=== PATIENT | female | born 1945 | race Caucasian/White ===

== ENCOUNTER 2017-06-27 22:32 | Emergency (ER) | payer OTHER ==
[~2017-06-27] VITALS: Ht 160 cm; Wt 88.5 kg
[~2017-06-27 22:32] MED LIST: ACET1TAB12; IBUP-51 PO; RANI150C4 PO
[2017-06-27 22:35] VITALS: BP 171/88
[2017-06-28 01:09] LABS: BASOPHILS # (AUTO) 0.1 /CMM (0.0-0.2); BASOPHILS % (AUTO) 0.6 % (0.0-2.0); EOSINOPHILS # (AUTO) 0.3 /CMM (0.0-0.7); EOSINOPHILS % (AUTO) 2.7 % (0.0-6.0); HEMATOCRIT 37 % (33-45); HEMOGLOBIN 12.2 g/dL (11.5-14.8); LYMPHOCYTES # (AUTO) 2.6 /CMM (0.8-4.8); LYMPHOCYTES % (AUTO) 27.7 % (20.0-44.0); MEAN CORPUSCULAR HEMOGLOBIN 28 PG (26.0-33.0); MEAN CORPUSCULAR HGB CONC 33 g/dl (31.0-36.0); MEAN CORPUSCULAR VOLUME 84 fL (82-100); MONOCYTES # (AUTO) 0.7 /CMM (0.1-1.30); MONOCYTES % (AUTO) 7.9 % (2.0-12.0); NEUTROPHILS # (AUTO) 5.7 /CMM (1.8-8.9); NEUTROPHILS % (AUTO) 61.1 % (43.0-81.0); PLATELET COUNT (AUTO) 249 /CMM (150-450); RDW COEFFICIENT OF VARIATION 15.1 (11.5-15.0); RED BLOOD CELL COUNT(AUTO) 4.37 MIL/uL (4.0-5.2); WHITE BLOOD COUNT (AUTO) 9.4 K/uL (4.3-11.0)
[2017-06-28 01:10] LABS: CALCIUM, SERUM 9.2 mg/dL (8.5-10.1)
== END 2017-06-28 02:03 | disposition home or self-care (01) ==
LOC: ER 22:35
DX: M25.562 Pain in left knee (principal); G89.29 Other chronic pain; J44.9 Chronic obstructive pulmonary disease, unspecified; K21.9 Gastro-esophageal reflux disease without esophagitis; M19.90 Unspecified osteoarthritis, unspecified site; M81.0 Age-related osteoporosis without current pathological fracture; F10.10 Alcohol abuse, uncomplicated; F17.200 Nicotine dependence, unspecified, uncomplicated; Z96.652 Presence of left artificial knee joint; Z88.8 Allergy status to other drugs, medicaments and biological substances
CPT/HCPCS: 36415; 73564-TC; 73700-TC; 80048-TC; 85025-TC; A4606; Z7610

== ENCOUNTER 2018-03-22 23:20 | Emergency (ER) | payer OTHER ==
[~2018-03-22] VITALS: Ht 160 cm; Wt 89.8 kg
[2018-03-23 00:33] VITALS: BP 134/76
[2018-03-23] MEDS ORDERED: HYDROMORPHONE HCL 2 MG TABLET PO STA (00:35)
[2018-03-23] MEDS ORDERED: HYDROMORPHONE HCL 2 MG TABLET ONE (00:40)
[2018-03-23] MEDS ORDERED: ONDANSETRON 4 MG TAB.RAPDIS ONE ×2 (00:41→00:44)
--- NOTE | 2018-03-23 00:46 | NUR ---
ADDITIONAL ZOFRAN REMOVED FROM OMNICELL. INITIAL ZOFRAN TAB FELL ON FLOOR WHILE PATIENT ATTEMPTED TO SELF ADMINISTER.
[2018-03-23] MEDS ORDERED: ONDANSETRON 4 MG TAB.RAPDIS SL ONE (01:00)
--- NOTE | 2018-03-23 02:01 | NUR ---
CALLED [facility], SPOKE TO JULIO FOR PENDING LEFT KNEE XR, PER JULIO XR RESULTS, WILL FAX RESULTS.
== END 2018-03-23 02:43 | disposition home or self-care (01) ==
LOC: ER 23:23
DX: M25.462 Effusion, left knee (principal); J45.909 Unspecified asthma, uncomplicated; J44.9 Chronic obstructive pulmonary disease, unspecified; K21.9 Gastro-esophageal reflux disease without esophagitis; G89.29 Other chronic pain; M54.5 Low back pain; F17.200 Nicotine dependence, unspecified, uncomplicated; Z96.653 Presence of artificial knee joint, bilateral; Z88.5 Allergy status to narcotic agent; Z88.6 Allergy status to analgesic agent
CPT/HCPCS: 73564; 99284; A4606; Q0162; Z7610

== ENCOUNTER 2019-01-25 13:35 | Emergency (ER) | payer OTHER ==
[~2019-01-25] VITALS: Ht 162.6 cm; Wt 89.8 kg
--- NOTE | 2019-01-25 13:44 | NUR ---
CAME IN FOR DARK COLORED URINE X 1 WEEK, DENIES DYSURIA. L FLANK PAIN SINCE YESTERDAY. TO ER BED 9, HOOKED TO MONITOR, CHANGED TO GOWN, PROVIDED W WARM BLANKET, AWAITING MD JASSO.
[2019-01-25 14:03] LABS: BASOPHILS # (AUTO) 0.2 /CMM (0.0-0.2); BASOPHILS % (AUTO) 1.6 % (0.0-2.0); EOSINOPHILS % (AUTO) 3.5 % (0.0-6.0); HEMATOCRIT 40 % (33-45); HEMOGLOBIN 13.3 g/dL (11.5-14.8); LYMPHOCYTES # (AUTO) 5.5 /CMM (0.8-4.8); LYMPHOCYTES % (AUTO) 49.7 % (20.0-44.0); MEAN CORPUSCULAR HGB CONC 34 g/dl (31.0-36.0); MEAN CORPUSCULAR VOLUME 92 fL (82-100); MONOCYTES # (AUTO) 0.7 /CMM (0.1-1.30); MONOCYTES % (AUTO) 6.3 % (2.0-12.0); NEUTROPHILS # (AUTO) 4.3 /CMM (1.8-8.9); NEUTROPHILS % (AUTO) 38.9 % (43.0-81.0); PLATELET COUNT (AUTO) 264 /CMM (150-450); RED BLOOD CELL COUNT(AUTO) 4.28 MIL/uL (4.0-5.2); WHITE BLOOD COUNT (AUTO) 11.1 K/uL (4.3-11.0)
--- NOTE | 2019-01-25 14:12 | NUR ---
DR WILLS AT BEDSIDE
[2019-01-25 14:15] LABS: ALANINE AMINOTRANSFERASE 120 U/L (12-78); ALBUMIN 2.9 g/dL (3.4-5.0); ALKALINE PHOSPHATASE 769 U/L (46-116); ASPARTATE AMINOTRANSFERASE 106 U/L (15-37); BILIRUBIN,TOTAL 14.5 mg/dL (0.2-1.0); CARBON DIOXIDE 22 mmol/L (21-32); CHLORIDE 100 mmol/L (98-107); GLUCOSE 122 mg/dL (74-106); SODIUM SERUM 134 mmol/L (136-145); TOTAL PROTEIN, SERUM 7.6 g/dL (6.4-8.2); UREA NITROGEN, BLOOD 13 mg/dL (7-18)
[2019-01-25] MEDS ORDERED: MORPHINE SULFATE INJ 2 MG/ML DISP.SYRIN IV ONE (14:30)
[2019-01-25] MEDS ORDERED: ONDANSETRON HCL/PF 4 MG/2 ML VIAL IV ONE (14:30)
[2019-01-25] MEDS ORDERED: IV NS 0.9% 1,000 ML BAG IV ONE (14:30)
[2019-01-25] MEDS ORDERED: diphenhydrAMINE HCL 50 MG/ML VIAL IV ONE ×2 (14:30→17:00)
[2019-01-25 14:41] LABS: APPEARANCE,URINE Clear (CLEAR); BILIRUBIN,URINE LARGE (NEGATIVE); BLOOD, URINE Negative Ery/uL (NEGATIVE); COLOR,URINE Dark (YELLOW); KETONES,URINE Trace (NEGATIVE); LEUKOCYTE ESTERASE ,URINE Negative (NEGATIVE); NITRITE, URINE Negative (NEGATIVE); PROTEIN,URINE 30 mg/dl (NEGATIVE); UGLUCOSE 100 MG/DL mg/dL (NEGATIVE)
[2019-01-25] MEDS ORDERED: diphenhydrAMINE HCL 50 MG/ML VIAL ONE ×2 (14:42→16:50)
[2019-01-25] MEDS ORDERED: ONDANSETRON HCL/PF 4 MG/2 ML VIAL ONE (14:42)
[2019-01-25] MEDS ORDERED: MORPHINE SULFATE INJ 2 MG/ML DISP.SYRIN ONE (14:43)
[2019-01-25] MEDS ORDERED: MORPHINE SULFATE INJ 4 MG/ML DISP.SYRIN ONE (14:43)
[2019-01-25] MEDS ORDERED: TRIA1TAB3 PO (14:45)
[2019-01-25] MEDS ORDERED: OXYC-454 PO (14:45)
[2019-01-25 14:49] LABS: BACTERIA,URINE Few /HPF (None Seen); RBC,URINE 0-2 /HPF (0-2); SQUAMOUS EPITHELIAL CELL,UR Few /HPF (None Seen); WBC,URINE 0-2 /HPF (0-3)
--- NOTE | 2019-01-25 14:49 | NUR ---
WHEELED OUT VIA RNEY FOR CT SCAN
[2019-01-25] MEDS ORDERED: IV NS 0.9% 250 ML IV ONE (14:50)
[2019-01-25] MEDS ORDERED: CT SWABBABLE VALVE TRANS SET 1 EA INFUS.SET MC ONE (14:50)
[2019-01-25] MEDS ORDERED: IOHEXOL-300 100 ML VIAL IV ONE (14:50)
--- NOTE | 2019-01-25 16:23 | NUR ---
CALLED [facility] FOR MS BED
--- NOTE | 2019-01-25 16:30 | NUR ---
CALLED [facility]. ENVIRONMENTAL ENGINEERING INTERN WAS PAGED
--- NOTE | 2019-01-25 16:54 | NUR ---
CALLED [facility] AND THEY ARE UNABLE TO TAKE THIS PT
--- NOTE | 2019-01-25 17:00 | NUR ---
[facility] [phone], SPOKE WITH MICHAEL RELAYED THE NEEDS FOR HIGHER LEVEL OF CARE (DX. LIVER FAILURE AND NEED ERCP). CLINICALS FAXED TO [phone] REQUESTED.
--- NOTE | 2019-01-25 17:07 | NUR ---
CALLED [facility] SPOKE WITH PAULINA ([phone]), TRANSFERRED TO CASE MANAGEMENT AND LEFT A GENERIC MESSAGE TO CALL US BACK.
--- NOTE | 2019-01-25 17:10 | NUR ---
GRACIELA PHAN CM, CALLED ASKING US TO CALL [facility] FOR AUTH.
--- NOTE | 2019-01-25 17:19 | NUR ---
CALLED [facility] ([facility]) [phone]. SPOKE WITH CARYL WHO WILL HAVE THE ON-CALL STRATIGRAPHER CALL US BACK (REFERENCE# [id number]) WITHIN 30 MIN.
[2019-01-25] MEDS ORDERED: LORAZEPAM INJ 2 MG/ML VIAL IV ONE (17:30)
[2019-01-25] MEDS ORDERED: NICOTINE PATCH (14MG) 14 MG PATCH.TD24 TD SCH (17:30)
[2019-01-25] MEDS ORDERED: LORAZEPAM INJ 2 MG/ML VIAL ONE (17:33)
--- NOTE | 2019-01-25 17:34 | NUR ---
US TECH AT BEDSIDE
--- NOTE | 2019-01-25 17:43 | NUR ---
CALLED [facility] [employer]. THE OFFICE IS CLOSED. WAITING FOR [employer] TO CALL BACK
--- NOTE | 2019-01-25 17:47 | NUR ---
JOVON FROM [employer] CALLED AND REQUESTED FACESHEET AND CLINICALS
--- NOTE | 2019-01-25 17:55 | NUR ---
CALLED [facility] TO REACH OUT TO JOVON DIRECTLY. NEW REFERENCE NUMBER [phone]
--- NOTE | 2019-01-25 18:07 | NUR ---
SPOKE TO JOVON AND INFORMED HER THAT PT NEEDS ERCP
--- NOTE | 2019-01-25 19:25 | NUR ---
CALLED [facility] TO ASK IF THERE WAS A CHANGE IN CAPACITY. [facility] IS UNABLE TO TAKE PT
--- NOTE | 2019-01-25 19:32 | NUR ---
REPORT GIVEN TO SHRUTHI LEMUS FOR JASMYNE
--- NOTE | 2019-01-25 20:26 | NUR ---
AT THE BED SIDE DISCUSSING THE PATIENT'S CONDISION AND OPTIONS W/ THE PT'S SON.
--- NOTE | 2019-01-25 20:52 | NUR ---
Patient/ son does not wish to proceed with medical care recommended by Dr. WILLS. Patient/ son verbalizes understanding of risks involved due to leaving against medical advice. Son has signed AMA form.
--- NOTE | 2019-01-25 20:53 | NUR ---
IV removed. Catheter intact and site benign. Pressure and 4x4 applied to site. No bleeding noted.
--- NOTE | 2019-01-25 20:59 | NUR ---
Patient discharged to home in stable condition. Written and verbal after care instructions given. Patient and son verbalized understanding of instruction.
[2019-01-25 21:07] VITALS: BP 153/96
== END 2019-01-25 21:09 | disposition left against medical advice (07) ==
LOC: ER 13:39
DX: K76.89 Other specified diseases of liver (principal); R10.30 Lower abdominal pain, unspecified; J44.9 Chronic obstructive pulmonary disease, unspecified; G89.29 Other chronic pain; M54.9 Dorsalgia, unspecified; R11.10 Vomiting, unspecified; K21.9 Gastro-esophageal reflux disease without esophagitis; F17.200 Nicotine dependence, unspecified, uncomplicated; Z96.653 Presence of artificial knee joint, bilateral; Z98.890 Other specified postprocedural states; Z60.2 Problems related to living alone; Z88.6 Allergy status to analgesic agent; Z88.5 Allergy status to narcotic agent
CPT/HCPCS: 36415; 74177; 76700; 80048; 80074; 80076; 81001; 85025; 85610; 87081; 96361; 96374; 96375; 96376; 99291; G0480; J1200 ×2; J2060; J2270 ×2; J2405; J7030; J7050; Q9967; 81000-TC

== ENCOUNTER 2019-04-03 11:22 | Emergency (ER) | payer OTHER ==
[~2019-04-03] VITALS: Ht 160 cm; Wt 69.9 kg
[~2019-04-03 11:22] MED LIST changes: -ACET1TAB12; -IBUP-51 PO; +OXYC-454 PO; +TRIA1TAB3 PO
--- NOTE | 2019-04-03 12:00 | NUR ---
RLQ PAIN SINCE 02/18/19 SINCE SURGERY FOR PANCREATIC CA WORST TODAY. DENIES N/V/D. PATIENT A/OX4, BREATHING EVEN AND UNLABORED, NO SOB NOTED, ATTACHED TO THE MONITOR, CHANGED INTO GOWN. NEEDS ATTENDED.
[2019-04-03] MEDS ORDERED: ONDANSETRON HCL/PF 4 MG/2 ML VIAL ONE (12:27)
[2019-04-03] MEDS: IV NS 0.9% 1,000 ML BAG IV ONE (12:27)
[2019-04-03] MEDS ORDERED: HYDROMORPHONE 1 MG/1 ML DISP.SYRIN ONE (12:28)
[2019-04-03 12:29] LABS: BASOPHILS # (AUTO) 0.1 /CMM (0.0-0.2); BASOPHILS % (AUTO) 0.9 % (0.0-2.0); EOSINOPHILS % (AUTO) 2.6 % (0.0-6.0); HEMATOCRIT 38 % (33-45); HEMOGLOBIN 12.4 g/dL (11.5-14.8); LYMPHOCYTES # (AUTO) 2.3 /CMM (0.8-4.8); MEAN CORPUSCULAR HGB CONC 33 g/dl (31.0-36.0); MEAN CORPUSCULAR VOLUME 93 fL (82-100); MONOCYTES # (AUTO) 0.7 /CMM (0.1-1.30); MONOCYTES % (AUTO) 6.6 % (2.0-12.0); NEUTROPHILS # (AUTO) 6.7 /CMM (1.8-8.9); NEUTROPHILS % (AUTO) 66.9 % (43.0-81.0); PLATELET COUNT (AUTO) 214 /CMM (150-450)
[2019-04-03] MEDS: ONDANSETRON HCL/PF 4 MG/2 ML VIAL IVP ONE (12:30)
[2019-04-03] MEDS: HYDROMORPHONE INJ 2 MG/ML DISP.SYRIN IV ONE (12:30)
[2019-04-03 13:14] LABS: CALCIUM, SERUM 8.3 mg/dL (8.5-10.1); CREATININE 0.9 mg/dL (0.6-1.3); POTASSIUM 3.6 mmol/L (3.5-5.1)
[2019-04-03 13:20] LABS: ALBUMIN 2.3 g/dL (3.4-5.0); BILIRUBIN,DIRECT 0.3 mg/dL (0.0-0.2); BILIRUBIN,TOTAL 0.4 mg/dL (0.2-1.0); TOTAL PROTEIN, SERUM 6.7 g/dL (6.4-8.2)
[2019-04-03 13:28] LABS: APPEARANCE,URINE Slightly Cloudy (CLEAR); BILIRUBIN,URINE Negative (NEGATIVE); BLOOD, URINE Negative Ery/uL (NEGATIVE); COLOR,URINE Yellow (YELLOW); KETONES,URINE Negative (NEGATIVE); LEUKOCYTE ESTERASE ,URINE Negative (NEGATIVE); NITRITE, URINE Negative (NEGATIVE); PROTEIN,URINE Negative (NEGATIVE); UGLUCOSE Negative (NEGATIVE); UROBILINOGEN,URINE 0.2 EU/dL (0.2)
--- NOTE | 2019-04-03 13:32 | NUR ---
URINE SENT TO LAB.
--- NOTE | 2019-04-03 13:51 | NUR ---
Ambulatory with a steady gait. IV removed. Catheter intact and site benign. Pressure and 4x4 applied to site. No bleeding noted.Patient discharged to home in stable condition. Written and verbal after care instructions given. Patient verbalizes understanding of instruction.
[2019-04-03 13:54] VITALS: BP 138/80
== END 2019-04-03 13:55 | disposition home or self-care (01) ==
LOC: ER 11:22
DX: C25.9 Malignant neoplasm of pancreas, unspecified (principal); J44.9 Chronic obstructive pulmonary disease, unspecified; K21.9 Gastro-esophageal reflux disease without esophagitis; M19.90 Unspecified osteoarthritis, unspecified site; M81.0 Age-related osteoporosis without current pathological fracture; G89.29 Other chronic pain; F17.200 Nicotine dependence, unspecified, uncomplicated; Z96.653 Presence of artificial knee joint, bilateral; Z98.890 Other specified postprocedural states; Z88.8 Allergy status to other drugs, medicaments and biological substances; Z60.2 Problems related to living alone; Z79.899 Other long term (current) drug therapy
CPT/HCPCS: 36415; 71250; 74176; 80048; 80076; 81001; 83690; 85025; 96374; 96375; 99284; J1170; J2405; J7030; 81000-TC

== ENCOUNTER 2019-05-15 01:47 | Emergency (ER) | payer OTHER ==
[~2019-05-15] VITALS: Ht 162.6 cm; Wt 81.6 kg
[2019-05-15] MEDS ORDERED: MORPHINE SULFATE INJ 2 MG/ML DISP.SYRIN IV ONE (02:00)
[2019-05-15] MEDS ORDERED: IV NS 0.9% 500 ML BAG IV ONE (02:00)
[2019-05-15] MEDS ORDERED: ONDANSETRON HCL/PF 4 MG/2 ML VIAL IVP ONE (02:00)
[2019-05-15] MEDS ORDERED: ONDANSETRON HCL/PF 4 MG/2 ML VIAL ONE (02:03)
[2019-05-15] MEDS ORDERED: MORPHINE SULFATE INJ 2 MG/ML DISP.SYRIN ONE (02:04)
--- NOTE | 2019-05-15 02:05 | NUR ---
PT BIBFAMILY. AAOX4. AMBULATORY. PT C/O HAD FEVER, CHILLS, DIZZYNESS EARLIER TODAY. THE PT TOOK 1G TYLENOL"-SOB, - FEVER (98.3). RR EVEN AND UNLABORED. PLACED ON MONITOR AND PULSE OX. MD AT BEDSIDE. NO ACUTE DISTRESS NOTED.
--- NOTE | 2019-05-15 02:20 | NUR ---
PARTICLE BOARD SUPERVISOR AT BEDSIDE FOR LAB COLLECTION
--- NOTE | 2019-05-15 02:33 | NUR ---
PT BROUGHT TO CT
[2019-05-15 02:36] LABS: BASOPHILS % (AUTO) 0.2 % (0.0-2.0); EOSINOPHILS % (AUTO) 1.5 % (0.0-6.0); HEMATOCRIT 32 % (33-45); HEMOGLOBIN 10.5 g/dL (11.5-14.8); LYMPHOCYTES # (AUTO) 0.3 /CMM (0.8-4.8); LYMPHOCYTES % (AUTO) 9.7 % (20.0-44.0); MEAN CORPUSCULAR HGB CONC 33 g/dl (31.0-36.0); MEAN CORPUSCULAR VOLUME 88 fL (82-100); MONOCYTES % (AUTO) 0.7 % (2.0-12.0); NEUTROPHILS % (AUTO) 87.9 % (43.0-81.0); PLATELET COUNT (AUTO) 85 /CMM (150-450); RED BLOOD CELL COUNT(AUTO) 3.66 MIL/uL (4.0-5.2); WHITE BLOOD COUNT (AUTO) 3.4 K/uL (4.3-11.0)
[2019-05-15 02:37] LABS: CALCIUM, SERUM 8.2 mg/dL (8.5-10.1); CARBON DIOXIDE 24 mmol/L (21-32); CHLORIDE 101 mmol/L (98-107); CREATININE 0.9 mg/dL (0.6-1.3); GLUCOSE 121 mg/dL (74-106); POTASSIUM 3.6 mmol/L (3.5-5.1); SODIUM SERUM 135 mmol/L (136-145); UREA NITROGEN, BLOOD 12 mg/dL (7-18)
[2019-05-15 02:43] LABS: ALANINE AMINOTRANSFERASE 25 U/L (12-78); ALBUMIN 2.3 g/dL (3.4-5.0); ALKALINE PHOSPHATASE 95 U/L (46-116); ASPARTATE AMINOTRANSFERASE 44 U/L (15-37); BILIRUBIN,DIRECT 0.3 mg/dL (0.0-0.2); BILIRUBIN,TOTAL 0.6 mg/dL (0.2-1.0); LIPASE 108 U/L (73-393); TOTAL PROTEIN, SERUM 6.9 g/dL (6.4-8.2)
--- NOTE | 2019-05-15 02:47 | NUR ---
PT BROUGHT BACK FROM CT
[2019-05-15 03:00] LABS: LYMPHOCYTES % (MANUAL) 10 % (16-48); NEUTROPHILS % (MANUAL) 90 (42-76)
--- NOTE | 2019-05-15 04:03 | NUR ---
Patient is resting comfortably in bed. Easily aroused. VSS. Son at bedside
--- NOTE | 2019-05-15 04:40 | NUR ---
Urine collected and sent to lab
--- NOTE | 2019-05-15 04:42 | NUR ---
Patient is resting comfortably in bed. Easily aroused. VSS.
[2019-05-15 04:44] LABS: APPEARANCE,URINE Clear (CLEAR); BILIRUBIN,URINE MODERATE (NEGATIVE); BLOOD, URINE Large Ery/uL (NEGATIVE); COLOR,URINE Dark (YELLOW); KETONES,URINE Trace (NEGATIVE); LEUKOCYTE ESTERASE ,URINE Negative (NEGATIVE); NITRITE, URINE Negative (NEGATIVE); PROTEIN,URINE 100 mg/dl (NEGATIVE); UGLUCOSE Negative (NEGATIVE)
--- NOTE | 2019-05-15 05:25 | NUR ---
Patient discharged to home in stable condition. Written and verbal after care instructions given. Patient verbalizes understanding of instruction. IV removed. Catheter intact and site benign. Pressure and 4x4 applied to site. No bleeding noted. pt ambulatory with a steady gait with the help of her son. pt wheeled out using wheelchair.
[2019-05-15 05:30] VITALS: BP 131/60
[2019-05-15 05:58] LABS: BACTERIA,URINE Moderate /HPF (None Seen); RBC,URINE 51-80 /HPF (0-2); SQUAMOUS EPITHELIAL CELL,UR Moderate /HPF (None Seen)
== END 2019-05-15 05:31 | disposition home or self-care (01) ==
LOC: ER 01:49
DX: R10.30 Lower abdominal pain, unspecified (principal); J44.9 Chronic obstructive pulmonary disease, unspecified; K21.9 Gastro-esophageal reflux disease without esophagitis; G89.29 Other chronic pain; M81.0 Age-related osteoporosis without current pathological fracture; M19.90 Unspecified osteoarthritis, unspecified site; F17.200 Nicotine dependence, unspecified, uncomplicated; Z96.653 Presence of artificial knee joint, bilateral; Z98.890 Other specified postprocedural states; Z88.8 Allergy status to other drugs, medicaments and biological substances; Z60.2 Problems related to living alone; Z85.07 Personal history of malignant neoplasm of pancreas
CPT/HCPCS: 36415; 71045; 74176; 80048; 80076; 81001; 83605; 83690; 84484; 85025; 85730; 87040 ×2; 87086; 87804 ×2; 93005; 96374; 99284; J2405; J7040 ×2; 81000-TC; J2270

== ENCOUNTER 2019-06-28 21:56 | Emergency (ER) | payer OTHER ==
[~2019-06-28] VITALS: Ht 160 cm; Wt 79.4 kg
[2019-06-29] MEDS ORDERED: IV NS 0.9% 1,000 ML IV PRN
[2019-06-29] MEDS ORDERED: HYDROMORPHONE INJ 0.5 MG/0.5 ML SYRINGE IV ONE
[2019-06-29] MEDS ORDERED: HYDROMORPHONE 1 MG/1 ML DISP.SYRIN ONE (00:08)
--- NOTE | 2019-06-29 00:10 | NUR ---
BIBFAMILY FROM HOME TO ER BED 12. AAOX4. NO RESP DISTRESS NOTED. C/O GEN BODY PAIN. PT REPORT THAT SHE IS ON CHEMO BOTH IV AND ORAL FOR PANCREATIC CA. PT LAST TOOK HER PAIN MEDICATION THIS MORNING. PT REPORTS THAT HER PAIN IS 6/10. PAIN IS AGGREVATED BY ADLS AND MOVEMENT. DENIES CP & SOB. -NVD. MD AT BEDSIDE FOR EVAL. ORDERS RECEIVED NOTED AND CARRIED OUT. IV LINE OBTAINED ON THE L AC 20G. BLOOD WAS DRAWN AND GIVEN TO INSURANCE CLERK AT BEDSIDE.
[2019-06-29 00:15] LABS: BASOPHILS # (AUTO) 0.1 /CMM (0.0-0.2); BASOPHILS % (AUTO) 1.5 % (0.0-2.0); EOSINOPHILS % (AUTO) 2.1 % (0.0-6.0); HEMATOCRIT 34 % (33-45); HEMOGLOBIN 10.9 g/dL (11.5-14.8); LYMPHOCYTES # (AUTO) 0.7 /CMM (0.8-4.8); LYMPHOCYTES % (AUTO) 9.8 % (20.0-44.0); MEAN CORPUSCULAR HGB CONC 32 g/dl (31.0-36.0); MEAN CORPUSCULAR VOLUME 92 fL (82-100); MONOCYTES # (AUTO) 0.1 /CMM (0.1-1.30); MONOCYTES % (AUTO) 1.9 % (2.0-12.0); NEUTROPHILS # (AUTO) 5.9 /CMM (1.8-8.9); NEUTROPHILS % (AUTO) 84.7 % (43.0-81.0); PLATELET COUNT (AUTO) 157 /CMM (150-450); RED BLOOD CELL COUNT(AUTO) 3.67 MIL/uL (4.0-5.2)
[2019-06-29 00:22] LABS: CALCIUM, SERUM 8.8 mg/dL (8.5-10.1); CREATININE 0.9 mg/dL (0.6-1.3); POTASSIUM 4.1 mmol/L (3.5-5.1)
--- NOTE | 2019-06-29 02:21 | NUR ---
Note jena in [facility] - 06/29/19 at 0239 by LALO PT IN BED SLEEPING COMFORTABLY. NAD NOTED. PT ARROUSABLE
--- NOTE | 2019-06-29 02:21 | NUR ---
PT IN BED SLEEPING COMFORTABLY. NAD NOTED. PT IS HARD TO ARROUSE.
--- NOTE | 2019-06-29 02:39 | NUR ---
Note jena in [facility] - 06/29/19 at 0240 by LALO PT IN BED SLEEPING COMFORTABLY. NAD NOTED. PT IS HARD TO ARROUSABLE
--- NOTE | 2019-06-29 04:22 | NUR ---
Patient discharged to home in stable condition. Written and verbal after care instructions given. Patient verbalizes understanding of instruction.IV removed. Catheter intact and site benign. Pressure and 4x4 applied to site. No bleeding noted. Pt ambulatory with a steady gait
[2019-06-29 04:23] VITALS: BP 114/51
== END 2019-06-29 04:29 | disposition home or self-care (01) ==
LOC: ER 21:59
DX: M79.10 Myalgia, unspecified site (principal); R10.13 Epigastric pain; J44.9 Chronic obstructive pulmonary disease, unspecified; K21.9 Gastro-esophageal reflux disease without esophagitis; M81.0 Age-related osteoporosis without current pathological fracture; M19.90 Unspecified osteoarthritis, unspecified site; G89.29 Other chronic pain; Z98.890 Other specified postprocedural states; Z85.07 Personal history of malignant neoplasm of pancreas; Z96.653 Presence of artificial knee joint, bilateral; Z88.8 Allergy status to other drugs, medicaments and biological substances; Z87.891 Personal history of nicotine dependence; Z79.899 Other long term (current) drug therapy; Z60.2 Problems related to living alone
CPT/HCPCS: 36415; 71045; 80048; 85025; 87804 ×2; 96374; 99284; J1170; J7030

== ENCOUNTER 2019-06-30 15:28 | Emergency (ER) | payer OTHER ==
[~2019-06-30] VITALS: Ht 165.1 cm; Wt 74.8 kg
--- NOTE | 2019-06-30 16:15 | NUR ---
PT CAME INTO THE ED FOR FEVER AND GENERALIZED BODY ACHES 0/10. PT AAOX4, VSS, BREATHING EVEN AND UNLABORED ON ROOM AIR W/ NAD NOTED.
--- NOTE | 2019-06-30 16:15 | NUR ---
PT CONNECTED TO THE TRACK BROOM OPERATOR AND POX
--- NOTE | 2019-06-30 16:30 | NUR ---
IV LINE ESTABLISHED. BLOOD DRAWN AND SENT TO LAB
[2019-06-30 17:08] LABS: BASOPHILS # (AUTO) 0.1 /CMM (0.0-0.2); BASOPHILS % (AUTO) 0.7 % (0.0-2.0); EOSINOPHILS % (AUTO) 1.1 % (0.0-6.0); HEMATOCRIT 28 % (33-45); HEMOGLOBIN 9.2 g/dL (11.5-14.8); LYMPHOCYTES # (AUTO) 0.5 /CMM (0.8-4.8); LYMPHOCYTES % (AUTO) 5.9 % (20.0-44.0); MEAN CORPUSCULAR HGB CONC 33 g/dl (31.0-36.0); MEAN CORPUSCULAR VOLUME 92 fL (82-100); MONOCYTES # (AUTO) 0.1 /CMM (0.1-1.30); MONOCYTES % (AUTO) 1.4 % (2.0-12.0); NEUTROPHILS # (AUTO) 7.7 /CMM (1.8-8.9); NEUTROPHILS % (AUTO) 90.9 % (43.0-81.0); PLATELET COUNT (AUTO) 128 /CMM (150-450); RED BLOOD CELL COUNT(AUTO) 3.06 MIL/uL (4.0-5.2); WHITE BLOOD COUNT (AUTO) 8.5 K/uL (4.3-11.0)
[2019-06-30 17:19] LABS: CALCIUM, SERUM 8.3 mg/dL (8.5-10.1); CREATININE 0.7 mg/dL (0.6-1.3)
[2019-06-30 17:25] LABS: ALBUMIN 2.5 g/dL (3.4-5.0); BILIRUBIN,DIRECT 0.4 mg/dL (0.0-0.2); BILIRUBIN,TOTAL 0.9 mg/dL (0.2-1.0); TOTAL PROTEIN, SERUM 6.6 g/dL (6.4-8.2)
--- NOTE | 2019-06-30 17:35 | NUR ---
URINE COLLECTED AND SENT TO LAB
[2019-06-30 18:03] LABS: APPEARANCE,URINE Clear (CLEAR); BILIRUBIN,URINE SMALL (NEGATIVE); BLOOD, URINE Negative Ery/uL (NEGATIVE); COLOR,URINE Yellow (YELLOW); KETONES,URINE Negative (NEGATIVE); LEUKOCYTE ESTERASE ,URINE Negative (NEGATIVE); NITRITE, URINE Negative (NEGATIVE); PROTEIN,URINE 30 mg/dl (NEGATIVE); UGLUCOSE Negative (NEGATIVE); UROBILINOGEN,URINE 0.2 EU/dL (0.2)
[2019-06-30] MEDS ORDERED: IV NS 0.9% 250 ML IV ONE (18:17)
[2019-06-30] MEDS ORDERED: CT SWABBABLE VALVE TRANS SET 1 EA INFUS.SET MC ONE (18:17)
[2019-06-30] MEDS ORDERED: IOHEXOL-300 100 ML VIAL IV ONE (18:17)
[2019-06-30 18:57] LABS: BACTERIA,URINE 1+ /HPF (None Seen); RBC,URINE 0-2 /HPF (0-2); SQUAMOUS EPITHELIAL CELL,UR Few /HPF (None Seen); WBC,URINE 0-2 /HPF (0-3)
[2019-06-30] MEDS ORDERED: MEROPENEM 1,000 MG in IV NS 0.9% 100 ML IV ONE (19:30)
--- NOTE | 2019-06-30 20:16 | NUR ---
CM INFORMED US THAT PT IS CAPITATED TO [facility]. AWAITING BED ASSIGNMENT
[2019-06-30 21:29] VITALS: BP 129/48
--- NOTE | 2019-06-30 22:20 | NUR ---
PT ACCEPTED TO [facility]. RM [id number] CALL REPORT [phone] AUTH [id number]
--- NOTE | 2019-06-30 22:34 | NUR ---
CALLED [facility] FOR BLS TRANSPORT ETA [phone]
--- NOTE | 2019-07-01 00:07 | NUR ---
REPORT GIVEN TO ALLAN TERRY
--- NOTE | 2019-07-01 00:11 | NUR ---
report given to ems, pt stable for transfer
== END 2019-07-01 00:12 | disposition short-term general hospital (02) ==
LOC: ER 15:29
DX: K85.90 Acute pancreatitis without necrosis or infection, unspecified (principal); D64.9 Anemia, unspecified; D69.6 Thrombocytopenia, unspecified; J44.9 Chronic obstructive pulmonary disease, unspecified; K21.9 Gastro-esophageal reflux disease without esophagitis; M54.5 Low back pain; G89.29 Other chronic pain; F17.200 Nicotine dependence, unspecified, uncomplicated; R00.0 Tachycardia, unspecified; I44.4 Left anterior fascicular block; Z85.07 Personal history of malignant neoplasm of pancreas; Z60.2 Problems related to living alone; Z79.899 Other long term (current) drug therapy; Z96.653 Presence of artificial knee joint, bilateral; Z98.890 Other specified postprocedural states; Z88.5 Allergy status to narcotic agent; Z88.6 Allergy status to analgesic agent
CPT/HCPCS: 36415; 71045; 74177; 80048; 80076; 81001; 83605; 84145; 84484; 85025; 85730; 87040 ×2; 87081; 87086; 93005; 96365; 99285; J2185; J7030; J7050; Q9967; 81000-TC

== ENCOUNTER 2019-09-22 16:15 | Inpatient (IN) | payer OTHER ==
[~2019-09-22] VITALS: Ht 162.6 cm; Wt 94.8 kg
--- NOTE | 2019-09-22 16:45 | NUR ---
patient bibra from home, c/o weakness and body pain. On room air, breathing evenly and unlabored. connected to the monitor and pulse ox. kept comfortable, will continue to monitor accordingly.
[2019-09-22 18:26] LABS: BASOPHILS % (AUTO) 0.3 % (0.0-2.0); EOSINOPHILS % (AUTO) 0.1 % (0.0-6.0); HEMATOCRIT 29 % (33-45); HEMOGLOBIN 9.3 g/dL (11.5-14.8); LYMPHOCYTES # (AUTO) 1.1 /CMM (0.8-4.8); MEAN CORPUSCULAR HGB CONC 32 g/dl (31.0-36.0); MEAN CORPUSCULAR VOLUME 104 fL (82-100); MONOCYTES # (AUTO) 2.8 /CMM (0.1-1.30); MONOCYTES % (AUTO) 32.5 % (2.0-12.0); NEUTROPHILS # (AUTO) 4.7 /CMM (1.8-8.9); NEUTROPHILS % (AUTO) 54.1 % (43.0-81.0); PLATELET COUNT (AUTO) 90 /CMM (150-450); RED BLOOD CELL COUNT(AUTO) 2.78 MIL/uL (4.0-5.2); WHITE BLOOD COUNT (AUTO) 8.6 K/uL (4.3-11.0)
[2019-09-22 18:38] LABS: APPEARANCE,URINE Clear (CLEAR); BILIRUBIN,URINE SMALL (NEGATIVE); BLOOD, URINE Negative Ery/uL (NEGATIVE); COLOR,URINE Yellow (YELLOW); KETONES,URINE Negative (NEGATIVE); LEUKOCYTE ESTERASE ,URINE Negative (NEGATIVE); NITRITE, URINE Negative (NEGATIVE); PH,URINE 5.5 (5.0-8.0); PROTEIN,URINE Negative (NEGATIVE); UGLUCOSE Negative (NEGATIVE)
[2019-09-22 18:40] LABS: ALANINE AMINOTRANSFERASE 36 U/L (12-78); ALBUMIN 1.7 g/dL (3.4-5.0); ALKALINE PHOSPHATASE 264 U/L (46-116); ASPARTATE AMINOTRANSFERASE 108 U/L (15-37); BILIRUBIN,DIRECT 1.9 mg/dL (0.0-0.2); BILIRUBIN,TOTAL 3.1 mg/dL (0.2-1.0); CALCIUM, SERUM 7.9 mg/dL (8.5-10.1); CARBON DIOXIDE 19 mmol/L (21-32); CHLORIDE 102 mmol/L (98-107); CREATININE 1.7 mg/dL (0.6-1.3); GLUCOSE 125 mg/dL (74-106); LIPASE 216 U/L (73-393); POTASSIUM 5.5 mmol/L (3.5-5.1); SODIUM SERUM 131 mmol/L (136-145); TOTAL PROTEIN, SERUM 5.8 g/dL (6.4-8.2); UREA NITROGEN, BLOOD 76 mg/dL (7-18)
[2019-09-22 18:48] LABS: BACTERIA,URINE Rare /HPF (None Seen); RBC,URINE NONE SEEN /HPF (0-2); SQUAMOUS EPITHELIAL CELL,UR Few /HPF (None Seen); WBC,URINE NONE SEEN /HPF (0-3)
--- NOTE | 2019-09-22 19:19 | NUR ---
REPORT RECEIVED FROM ALLAN MCGOWAN
--- NOTE | 2019-09-22 19:21 | NUR ---
ULTRASOUND IN PROGRESS AT BEDSIDE
[2019-09-22] MEDS ORDERED: IV NS 0.9% 1,000 ML BAG IV ONE ×2 (19:30→21:00)
[2019-09-22 19:44] LABS: LYMPHOCYTES % (MANUAL) 12 % (16-48); MONOCYTES % (MANUAL) 25 % (0-11.0); NEUTROPHILS % (MANUAL) 63 (42-76)
--- NOTE | 2019-09-22 20:06 | NUR ---
CALL BACK IN A FEW MINUTES PER JUAN ANTONIO
--- NOTE | 2019-09-22 20:23 | NUR ---
REPORT GIVEN TO ALLAN ZARAGOZA
--- NOTE | 2019-09-22 21:01 | NUR ---
SPOKE TO OMID REGARDING PT REFUSING TRANSFER TO [facility], AUTHORIZATION TO ADMIT FOR OBSERVATION RECEIVED. AUTH #[id number]
--- NOTE | 2019-09-22 21:17 | NUR ---
ER TALKING TO DAVID CALDERON REGARDING PT ADMISSION.
--- NOTE | 2019-09-22 21:34 | NUR ---
DAVID CALDERON AT BEDSIDE TO ROMERO CAT.
--- NOTE | 2019-09-22 21:57 | NUR ---
PT TRANSFERRED TO ROOM IN STABLE CONDITION
--- NOTE | 2019-09-22 22:01 | NUR ---
RN NOTES PATIENT FROM ER, TRANSPORTED VIA GURNEY IN STABLE CONDITION, DENIES ANY PAIN OR DISCOMFORT. NO ACUTE RESPIRATORY DISTRESS NOTED. AWAITING FOR ADMITTING ORDERS.
[2019-09-22 23:00] VITALS: BP 135/55
[2019-09-22] MEDS ORDERED: MAG HYDROX/AL HYDROX/SIMETH 30 ML UDC PO PRN (23:00)
[2019-09-22] MEDS ORDERED: ONDANSETRON HCL/PF 4 MG/2 ML VIAL IVP PRN (23:00)
[2019-09-22] MEDS ORDERED: MAGNESIUM HYDROXIDE 30 ML UDC PO PRN (23:00)
[2019-09-22] MEDS ORDERED: Z GUARD REMEDY 2 OZ OINT TP PRN (23:00)
[2019-09-22] MEDS ORDERED: MORPHINE SULFATE INJ 2 MG/ML DISP.SYRIN IV PRN (23:00)
[2019-09-22 23:05] VITALS: BP 135/55
--- NOTE | 2019-09-22 23:50 | NUR ---
RN NOTES PATIENT REFUSED TO SIGN PROCEDURE CONSENT AT THIS TIME FOR CT OF ABDOMEN WITHOUT CONTRAST AND CT OF PELVIS WITHOUT CONTRAST. WILL FOLLOW UP LATER.
[2019-09-23] VITALS: BP 125/43
[2019-09-23] MEDS: IV NS 0.9% 1,000 ML IV PRN ×2 (00:47→16:38)
[2019-09-23] MEDS: FAMOTIDINE (20 MG) 20 MG TABLET PO SCH ×2 (01:43→08:21)
[2019-09-23 04:00] VITALS: BP 129/51
--- NOTE | 2019-09-23 07:21 | NUR ---
RN NOTES ALL NEEDS ATTENDED AND MET, ABLE TO REST AND SLEPT AT INTERVALS, KET CLEAN WARM DRY AND COMFORTABLE, CALL LIGHT WITH IN EASY REACH, SAFETY MEASURES IN PLACE, DENIES PAIN AT THIS TIME. WILL ENDORSE TO AM NURSE FOR CONTINUITY OF CARE.
--- NOTE | 2019-09-23 07:29 | NUR ---
TRAIN DRIVER OPENING NOTES RECEIVED PATIENT IN BED SLEEPING COMFORTABLY. PATIENT IN NO ACUTE DISTRESS. NO SOB NOTED. PATIENT BREATHING IS EVEN AND UNLABORED. BED ALARM IS ON. PATIENT SAFETY PRECAUTIONS IN PLACE. PATIENT ON CARDIAC MONITORING READING SINUS RHYTHM HR 81. PATIENT BED IS LOCKED AND IN LOWEST POSITION. CALL LIGHT WITHIN REACH. WILL CONTINUE TO MONITOR.
[2019-09-23 08:00] VITALS: BP 132/52
[2019-09-23] MEDS ORDERED: FAMOTIDINE 40 MG TABLET PO SCH (09:00)
[2019-09-23 11:28] LABS: BASOPHILS % (AUTO) 0.3 % (0.0-2.0); EOSINOPHILS % (AUTO) 0.4 % (0.0-6.0); HEMATOCRIT 27 % (33-45); HEMOGLOBIN 8.6 g/dL (11.5-14.8); LYMPHOCYTES # (AUTO) 1.7 /CMM (0.8-4.8); MEAN CORPUSCULAR HGB CONC 32 g/dl (31.0-36.0); MEAN CORPUSCULAR VOLUME 107 fL (82-100); MONOCYTES % (AUTO) 29.1 % (2.0-12.0); NEUTROPHILS # (AUTO) 5.7 /CMM (1.8-8.9); NEUTROPHILS % (AUTO) 54.2 % (43.0-81.0); PLATELET COUNT (AUTO) 112 /CMM (150-450); RED BLOOD CELL COUNT(AUTO) 2.54 MIL/uL (4.0-5.2); WHITE BLOOD COUNT (AUTO) 10.5 K/uL (4.3-11.0)
[2019-09-23 11:42] LABS: ALANINE AMINOTRANSFERASE 36 U/L (12-78); ALBUMIN 1.5 g/dL (3.4-5.0); ALKALINE PHOSPHATASE 233 U/L (46-116); ASPARTATE AMINOTRANSFERASE 103 U/L (15-37); BILIRUBIN,DIRECT 1.5 mg/dL (0.0-0.2); BILIRUBIN,TOTAL 2.8 mg/dL (0.2-1.0); CALCIUM, SERUM 7.4 mg/dL (8.5-10.1); CARBON DIOXIDE 17 mmol/L (21-32); CHLORIDE 104 mmol/L (98-107); CREATININE 1.7 mg/dL (0.6-1.3); GLUCOSE 109 mg/dL (74-106); MAGNESIUM 2.5 mg/dL (1.8-2.4); PHOSPHORUS 4.9 mg/dL (2.5-4.9); POTASSIUM 5.4 mmol/L (3.5-5.1); SODIUM SERUM 131 mmol/L (136-145); TOTAL PROTEIN, SERUM 5.1 g/dL (6.4-8.2); UREA NITROGEN, BLOOD 72 mg/dL (7-18)
[2019-09-23 12:07] LABS: CHOLESTEROL 152 mg/dL (<200); HDL CHOLESTEROL 24 mg/dL (40-60); LDL 94 mg/dL (0-99); THYROID STIMULATING HORMONE 8.625 uIU/mL (0.358-3.74); TRIGLYCERIDES 60 mg/dL (30-150)
[2019-09-23 12:11] LABS: BAND % (MANUAL) 1 % (0.0-5.0); EOSINOPHILS % (MANUAL) 1 % (0-4); LYMPHOCYTES % (MANUAL) 13 % (16-48); MONOCYTES % (MANUAL) 13 % (0-11.0); NEUTROPHILS % (MANUAL) 72 (42-76)
[2019-09-23 15:47] VITALS: BP 136/51
--- NOTE | 2019-09-23 18:47 | NUR ---
STEAM DISTRIBUTION SUPERVISOR CLOSING NOTES PATIENT IS IN BED RESTING COMFORTABLY AT THIS TIME. PATIENT IN NO ACUTE DISTRESS. NO SOB NOTED. PATIENT BREATHING IS EVEN AND UNLABORED. BED ALARM IS ON. PATIENT SAFETY PRECAUTIONS IN PLACE. PATIENT ON CARDIAC MONITORING READING SINUS RHYTHM HR 90. PATIENT KEPT CLEAN, DRY AND COMFORTABLE THROUGHOUT SHIFT. PATIENT STATED NO NAUSEA AT THIS TIME. PATIENT STATES NO PAIN AT THIS TIME. DALTON CATHETER HANGING TO GRAVITY. PATIENT WITH LEFT WRIST 22 GAUGE PATENT AND RUNNING 0.9% NORMAL SALINE AT 75ML/HR. PATIENT BED IS LOCKED AND IN LOWEST POSITION. CALL LIGHT WITHIN REACH. WILL ENDORSE CARE TO PM SHIFT FOR JASMYNE.
[2019-09-23] MEDS: FOLIC ACID 1 MG TABLET PO SCH (19:30)
--- NOTE | 2019-09-23 19:58 | NUR ---
TELE RNNOTES RECEIVED PATIENT IN BED SLEEPING COMFORTABLY. PATIENT IN NO ACUTE DISTRESS. NO SOB NOTED. PATIENT BREATHING IS EVEN AND UNLABORED. BED ALARM IS ON. PATIENT SAFETY PRECAUTIONS IN PLACE. PATIENT ON CARDIAC MONITORING READING SINUS RHYTHM HR 80s. PATIENT BED IS LOCKED AND IN LOWEST POSITION. CALL LIGHT WITHIN REACH. WILL CONTINUE TO MONITOR ACCORDINGLY.
[2019-09-23 20:00] VITALS: BP 113/57
[2019-09-23 20:26] VITALS: BP 113/57
--- NOTE | 2019-09-23 22:06 | NUR ---
RN NOTES PATIENTS SON CYNTHIA DOW ) CALLED, UPDATED HIM REGARDING PATIENTS' CURRENT STATUS.
[2019-09-24] VITALS: BP 128/54
[2019-09-24 00:41] VITALS: BP 128/54
[2019-09-24 04:00] VITALS: BP 126/54
[2019-09-24 04:50] VITALS: BP 126/54
[2019-09-24] MEDS: IV NS 0.9% 1,000 ML IV PRN (05:58)
--- NOTE | 2019-09-24 06:58 | NUR ---
RN NOTES ALL NEEDS ATTENDED AND MET, ABLE TO REST AND SLEPT THE WHOLE NIGHT EASILY AROUSABLE, PATIENT REFUSED EEG, PER TECH. WILL ENDORSE TO AM NURSE FOR CONTINUITY OF CARE. SAFETY MEASURES IN PLACE, ASPIRATION PRECAUTION EMPHASIZED, CALL LIGHT WITH IN EASY REACH.
[2019-09-24 07:58] VITALS: BP 115/50
--- NOTE | 2019-09-24 08:00 | NUR ---
MS RN- OPENING NOTES Received patient from night filler nurse in bed, awake, conscious, coopertive, IVF at left wrist NS at 75 ml/hr infusing well, no redness noted, with Jain catheter, with tele hand booked folder and stitcher attached.
[2019-09-24] MEDS ORDERED: SODIUM POLYSTYRENE SULFONATE 15 G/60 ML BOTTLE PO ONE (09:00)
[2019-09-24] MEDS: FAMOTIDINE (20 MG) 20 MG TABLET PO SCH (09:44)
[2019-09-24] MEDS: FOLIC ACID 1 MG TABLET PO SCH (09:44)
--- NOTE | 2019-09-24 09:45 | NUR ---
MS RN- UNABLE TO TOLERATE MEDICATION Patient wasn't able to tolerate Kayexelate Na medication. She verbalized to refuse to take the said medication as it will make her vomit.
--- NOTE | 2019-09-24 10:16 | NUR ---
RN DISLODGED IV ACCESS At 10:10 IV line access is dislodged.
--- NOTE | 2019-09-24 14:00 | NUR ---
MS RN- FBC Jain Catheter removed at 14:00, 250 ml urine noted clear and yellowish
[2019-09-24 15:54] VITALS: BP 120/98
--- NOTE | 2019-09-24 17:02 | NUR ---
PT IS VOMITING AND YET PT CONTINUES TO DRINK MILK AND LIES IN BED WITH HEAD OF THE BED FLAT.EXPLAINED TO HER THAT HER HEAD SHOULD BE ELEVATED WHEN SHE DRINKS PUTTING HERSELF AT RISK FOR ASPIRATION.PT REFUSED TO ELEVATE HER HEAD WHEN SHE DRINKS SAYING THAT SHE HAS BEEN DOING THIS FOR A LONG TIME,DRINKING MILK WITH HER HEAD FLAT ON BED.PT IS NON COMPLIANT INSPITE OF EXPLAINING ITS RISKS.
--- NOTE | 2019-09-24 17:10 | NUR ---
PT DENIES ANY DISTRESS/DISCOMFORT SAYING THIS VOMITING HAS BEEN ONGOING SINCE SHE HAD HER CHEMO TX.
--- NOTE | 2019-09-24 17:12 | NUR ---
MS RN- DISCHARGE Patient was discharged via wheelchair through the lobby to be pick up driver by her son Theron. Patient was awake, conscious, cooperative and coheren. No signs of respiratory distress upon discharged.
== END 2019-09-24 17:00 | disposition home or self-care (01) | DRG 435 ==
LOC: ER 16:16 → TELE 21:10
PROVIDERS: ADMIT Nurse Practitioner Acute Care; ATTEND Internal Medicine
DX: C25.9 Malignant neoplasm of pancreas, unspecified (principal); N17.0 Acute kidney failure with tubular necrosis; E43 Unspecified severe protein-calorie malnutrition; G92 Toxic encephalopathy; E87.1 Hypo-osmolality and hyponatremia; R18.8 Other ascites; K51.90 Ulcerative colitis, unspecified, without complications; R62.7 Adult failure to thrive; T45.1X5A Adverse effect of antineoplastic and immunosuppressive drugs, initial encounter; N18.9 Chronic kidney disease, unspecified; Y92.9 Unspecified place or not applicable; D69.6 Thrombocytopenia, unspecified; E86.0 Dehydration; F17.200 Nicotine dependence, unspecified, uncomplicated; F03.90 Unspecified dementia, unspecified severity, without behavioral disturbance, psychotic disturbance, mood disturbance, and anxiety; J44.9 Chronic obstructive pulmonary disease, unspecified; K21.9 Gastro-esophageal reflux disease without esophagitis; Z96.653 Presence of artificial knee joint, bilateral; Z90.49 Acquired absence of other specified parts of digestive tract; Z86.59 Personal history of other mental and behavioral disorders; Z85.07 Personal history of malignant neoplasm of pancreas; M81.0 Age-related osteoporosis without current pathological fracture; G89.29 Other chronic pain; E87.5 Hyperkalemia; E86.1 Hypovolemia; M19.90 Unspecified osteoarthritis, unspecified site; Z88.8 Allergy status to other drugs, medicaments and biological substances; Z79.899 Other long term (current) drug therapy; D53.9 Nutritional anemia, unspecified; K76.0 Fatty (change of) liver, not elsewhere classified; K76.9 Liver disease, unspecified; K43.9 Ventral hernia without obstruction or gangrene
CPT/HCPCS: 36415; 70450-TC; 71045-TC; 76705-TC; 80048-TC; 80061-TC; 80076-TC; 80305; 81000-TC; 82140-TC; 83690-TC; 83735-TC; 84100-TC; 84132-TC; 84443-TC; 84484-TC; 85025-TC; 87040-TC; 87081-TC; 93970-TC; G0378; G0480; J2405; J7030

== ENCOUNTER 2019-09-26 17:08 | Emergency (ER) | payer OTHER ==
[~2019-09-26] VITALS: Ht 167.6 cm; Wt 98.9 kg
--- NOTE | 2019-09-26 17:17 | NUR ---
KIERAN RA 839 From Home "Pancreatic CA on Chemo last dose saturday. Nausea and vomiting can't tolerate po", TO ER BED 3, HOOKED TO MONITOR, CHANGED TO HOSP GOWN, WARM BLANKET PROVIDED, PATIENT AOX 2, BREATHING EVEN AND UNLABORED, DR PATIÑO AT BEDSIDE
[2019-09-26] MEDS ORDERED: IV NS 0.9% 1,000 ML BAG IV ONE (17:30)
[2019-09-26] MEDS ORDERED: ONDANSETRON HCL/PF 4 MG/2 ML VIAL IVP ONE (17:30)
[2019-09-26] MEDS ORDERED: ONDANSETRON HCL/PF 4 MG/2 ML VIAL ONE (17:57)
[2019-09-26 18:02] LABS: BASOPHILS # (AUTO) 0.1 /CMM (0.0-0.2); BASOPHILS % (AUTO) 0.8 % (0.0-2.0); HEMATOCRIT 28 % (33-45); HEMOGLOBIN 9.3 g/dL (11.5-14.8); LYMPHOCYTES # (AUTO) 0.7 /CMM (0.8-4.8); LYMPHOCYTES % (AUTO) 5.5 % (20.0-44.0); MEAN CORPUSCULAR HGB CONC 33 g/dl (31.0-36.0); MEAN CORPUSCULAR VOLUME 105 fL (82-100); MONOCYTES # (AUTO) 3.4 /CMM (0.1-1.30); MONOCYTES % (AUTO) 27.3 % (2.0-12.0); NEUTROPHILS # (AUTO) 8.1 /CMM (1.8-8.9); NEUTROPHILS % (AUTO) 65.4 % (43.0-81.0); PLATELET COUNT (AUTO) 332 /CMM (150-450); RED BLOOD CELL COUNT(AUTO) 2.68 MIL/uL (4.0-5.2); WHITE BLOOD COUNT (AUTO) 12.5 K/uL (4.3-11.0)
--- NOTE | 2019-09-26 18:51 | NUR ---
SON: FLORESITA [phone]
--- NOTE | 2019-09-26 19:19 | NUR ---
REPORT GIVEN TO ADAM LEMUS FOR JASMYNE
--- NOTE | 2019-09-26 19:40 | NUR ---
ER PHLEB AT BEDSIDE FOR REDRAW BUT UNABLE TO OBTAIN SPECIMEN. AWARE.
[2019-09-26 20:38] LABS: ALANINE AMINOTRANSFERASE 34 U/L (12-78); ALBUMIN 1.6 g/dL (3.4-5.0); ALKALINE PHOSPHATASE 288 U/L (46-116); ASPARTATE AMINOTRANSFERASE 84 U/L (15-37); BILIRUBIN,DIRECT 2.4 mg/dL (0.0-0.2); BILIRUBIN,TOTAL 3.8 mg/dL (0.2-1.0); CALCIUM, SERUM 7.4 mg/dL (8.5-10.1); CARBON DIOXIDE 19 mmol/L (21-32); CHLORIDE 104 mmol/L (98-107); CREATININE 1.8 mg/dL (0.6-1.3); GLUCOSE 106 mg/dL (74-106); LIPASE 315 U/L (73-393); POTASSIUM 5.7 mmol/L (3.5-5.1); SODIUM SERUM 131 mmol/L (136-145); TOTAL PROTEIN, SERUM 5.6 g/dL (6.4-8.2); UREA NITROGEN, BLOOD 79 mg/dL (7-18)
--- NOTE | 2019-09-26 21:02 | NUR ---
PT PLACED ON O2 @ 2LPM VIA NC. PT NOTED W/ O2 SAT 93%. O2 SAT @ 96% AFTER O2. MADE AWARE
[2019-09-26 21:31] LABS: LYMPHOCYTES % (MANUAL) 12 % (16-48); MONOCYTES % (MANUAL) 20 % (0-11.0); NEUTROPHILS % (MANUAL) 68 (42-76)
--- NOTE | 2019-09-26 22:00 | NUR ---
PER ADMITING AWAITING PEER TO PEER CALL
--- NOTE | 2019-09-26 22:20 | NUR ---
DR MEDEL ([facility]) SPEAKING WITH DR PATHAK
--- NOTE | 2019-09-27 | NUR ---
PT ACCEPTED AT [facility] ACCEPTING MD MEDEL PT WILL GO TO ROOM 6173 PHONE # FOR REPORT AUTH # FOR TRANSPORT [id number]
--- NOTE | 2019-09-27 | NUR ---
Saeed bella in ED - 09/27/19 at 0016 by KASSANDRA PT ACCEPTED AT [facility] PT WILL GO TO ROOM 3868 PHONE # FOR REPORT AUTH # FOR TRANSPORT [id number]
--- NOTE | 2019-09-27 00:21 | NUR ---
[facility] ETA IN 45 MIN
--- NOTE | 2019-09-27 01:09 | NUR ---
REPORT GIVEN TO ALLAN LUNDBERG FOR JASMYNE AT THE [facility]
[2019-09-27 01:11] VITALS: BP 114/40
--- NOTE | 2019-09-27 01:13 | NUR ---
JEANNE BLANCO #40 AT BEDSIDE FOR PT TRANSPORT TI [facility]. REPORT GIVEN WELL
== END 2019-09-27 01:25 | disposition short-term general hospital (02) ==
LOC: ER 17:09
DX: R10.84 Generalized abdominal pain (principal); N17.9 Acute kidney failure, unspecified; E87.5 Hyperkalemia; R11.10 Vomiting, unspecified; J44.9 Chronic obstructive pulmonary disease, unspecified; K21.9 Gastro-esophageal reflux disease without esophagitis; M81.0 Age-related osteoporosis without current pathological fracture; M19.90 Unspecified osteoarthritis, unspecified site; F17.200 Nicotine dependence, unspecified, uncomplicated; G89.29 Other chronic pain; Z96.653 Presence of artificial knee joint, bilateral; Z98.890 Other specified postprocedural states; Z88.8 Allergy status to other drugs, medicaments and biological substances; Z60.2 Problems related to living alone
CPT/HCPCS: 36415; 71045; 80048; 80076; 83690; 85025; 96361; 96374; 99285; J2405; J7030

== ENCOUNTER 2019-10-05 00:48 | Inpatient (IN) | payer OTHER ==
[~2019-10-05] VITALS: Ht 167.6 cm; Wt 101.2 kg
[~2019-10-05 00:48] MED LIST changes: -TRIA1TAB3 PO
--- NOTE | 2019-10-05 00:50 | NUR ---
PT BHARATH FROM HOME C/O GENERALIZED WEAKNESS AND BODY ACHE. PER RA, ALSO C/O LOW O2 SAT AND HYPOTENSION. PT 96% ROOM AIR AND AFEBRILE ON ARRIVAL. PT AAOX4. RESPIRATIONS EVEN AND UNLABORED. VITAL SIGNS STABLE. PLACED IN GOWN AND ON MONITOR, CALL LIGHT WITHIN REACH, WILL CONTINUE TO MONITOR.
[2019-10-05] MEDS ORDERED: IV NS 0.9% 500 ML BAG IV ONE (01:30)
[2019-10-05] MEDS ORDERED: HYDROMORPHONE INJ 2 MG/ML DISP.SYRIN IV ONE (01:30)
[2019-10-05] MEDS ORDERED: ONDANSETRON HCL/PF 4 MG/2 ML VIAL IVP ONE (01:30)
[2019-10-05] MEDS ORDERED: ONDANSETRON HCL/PF 4 MG/2 ML VIAL ONE (01:32)
[2019-10-05] MEDS ORDERED: HYDROMORPHONE 1 MG/1 ML DISP.SYRIN ONE (01:33)
[2019-10-05 01:53] LABS: BASOPHILS # (AUTO) 0.1 /CMM (0.0-0.2); BASOPHILS % (AUTO) 0.2 % (0.0-2.0); EOSINOPHILS % (AUTO) 0.7 % (0.0-6.0); HEMATOCRIT 28 % (33-45); HEMOGLOBIN 8.9 g/dL (11.5-14.8); LYMPHOCYTES % (AUTO) 3.3 % (20.0-44.0); MEAN CORPUSCULAR HGB CONC 32 g/dl (31.0-36.0); MEAN CORPUSCULAR VOLUME 109 fL (82-100); MONOCYTES # (AUTO) 4.4 /CMM (0.1-1.30); MONOCYTES % (AUTO) 14.7 % (2.0-12.0); NEUTROPHILS # (AUTO) 24.1 /CMM (1.8-8.9); NEUTROPHILS % (AUTO) 81.1 % (43.0-81.0); PLATELET COUNT (AUTO) 224 /CMM (150-450); RED BLOOD CELL COUNT(AUTO) 2.54 MIL/uL (4.0-5.2); WHITE BLOOD COUNT (AUTO) 29.7 K/uL (4.3-11.0)
--- NOTE | 2019-10-05 02:07 | NUR ---
URINE COLLECTED AND SENT TO LAB
--- NOTE | 2019-10-05 02:27 | NUR ---
RETURNED FROM CT
--- NOTE | 2019-10-05 02:30 | NUR ---
BLOOD HEMOLYZED, CALENDAR CONTROL CLERK BLOOD BANK AT BEDSIDE FOR REDRAW
[2019-10-05 02:54] LABS: APPEARANCE,URINE CLOUDY (CLEAR); BILIRUBIN,URINE MODERATE (NEGATIVE); BLOOD, URINE TRACE-INTA Ery/uL (NEGATIVE); COLOR,URINE DARK YELLO (YELLOW); KETONES,URINE TRACE (NEGATIVE); LEUKOCYTE ESTERASE ,URINE MODERATE (NEGATIVE); NITRITE, URINE POSITIVE (NEGATIVE); PROTEIN,URINE TRACE mg/dl (NEGATIVE); UGLUCOSE NEGATIVE (NEGATIVE)
[2019-10-05 02:55] LABS: BAND % (MANUAL) 8 % (0.0-5.0); EOSINOPHILS % (MANUAL) 2 % (0-4); LYMPHOCYTES % (MANUAL) 10 % (16-48); MONOCYTES % (MANUAL) 10 % (0-11.0); NEUTROPHILS % (MANUAL) 70 (42-76)
[2019-10-05 02:57] LABS: BACTERIA,URINE Moderate /HPF (None Seen); RBC,URINE 0-2 /HPF (0-2); SQUAMOUS EPITHELIAL CELL,UR Few /HPF (None Seen); WBC,URINE 21-50 /HPF (0-3)
[2019-10-05] MEDS ORDERED: CEFTRIAXONE 1 G in IV D5W 50 ML IV ONE (03:00)
[2019-10-05] MEDS ORDERED: CEFTRIAXONE 1GM BAG (ER ONLY) 50 ML IV ONE (03:06)
[2019-10-05 03:18] LABS: ALANINE AMINOTRANSFERASE 23 U/L (12-78); ALBUMIN 1.5 g/dL (3.4-5.0); ALKALINE PHOSPHATASE 255 U/L (46-116); ASPARTATE AMINOTRANSFERASE 64 U/L (15-37); BILIRUBIN,DIRECT 2.4 mg/dL (0.0-0.2); BILIRUBIN,TOTAL 3.3 mg/dL (0.2-1.0); CALCIUM, SERUM 7.8 mg/dL (8.5-10.1); CARBON DIOXIDE 16 mmol/L (21-32); CHLORIDE 100 mmol/L (98-107); CREATININE 3.4 mg/dL (0.6-1.3); GLUCOSE 97 mg/dL (74-106); POTASSIUM 4.3 mmol/L (3.5-5.1); SODIUM SERUM 128 mmol/L (136-145); TOTAL PROTEIN, SERUM 5.3 g/dL (6.4-8.2)
[2019-10-05 03:19] LABS: UREA NITROGEN, BLOOD 91 mg/dL (7-18)
--- NOTE | 2019-10-05 03:29 | NUR ---
NOTED HYPOTENSION. MD AWARE
[2019-10-05 03:37] LABS: LIPASE 2650 U/L (73-393)
[2019-10-05] MEDS ORDERED: IV NS 0.9% 1,000 ML BAG IV ONE (04:00)
--- NOTE | 2019-10-05 04:29 | NUR ---
ER TALKING SCAN REGARDING PT.
[2019-10-05] MEDS ORDERED: oxyCODONE IR immediate release 5 MG PO PRN (05:00)
--- NOTE | 2019-10-05 09:19 | NUR ---
report given to Sarahy LEMUS for graciela.
--- NOTE | 2019-10-05 09:49 | NUR ---
wheeled patient via gurney accompanied by Steph Arreguin in no distress. RN at bedside to assume care.
[2019-10-05 09:50] VITALS: BP 99/50
--- NOTE | 2019-10-05 09:55 | NUR ---
DONOR RECRUITERWEDDING PHOTOGRAPHER NOTES RECEIVED PT VIA CRISTAL FROM ER DEPT AT 0940AM. PT AWAKE, A/OX2-3. PT ON SUPPLEMENTARY OXYGEN AT 5LPM VIA NC , WITH NO ACUTE RESPIRATORY DISTRESS NOTED. VS TAKEN AND RECORDED. PT DENIES ANY PAIN OR DISCOMFORT AT THIS TIME. PIV TO LEFT WRIST G22, FLUSHED WITH NS, INTACT AND OPERATIONAL. PT ASKED FOR HISTORY AND ALL SHE ANSWERS IS "I DON'T KNOW AND I'M SCARED, I'LL BE DYING". CHARGE NURSE/MARLON MADE AWARE. ADMITTING LW MADE AWARE WELL. ORDERS PLACED AND CARRIED OUT. PT REFUSED TO BE MOVED FOR SKIN ASSESSMENT AT THIS TIME. PT KEPT COMFORTABLE. CALL LIGHT KEPT WITHIN REACH. PT'S BED IN LOWEST LOCKED POSITION WITH SR X3. WILL CONTINUE PLAN OF CARE.
--- NOTE | 2019-10-05 10:00 | NUR ---
BUSINESS FUNCTIONAL ANALYST NOTES NOTIFIED ADMITTING HOSPITALIST/STRATEGIC PARTNERSHIP REPRESENTATIVE/LW REGARDING ADMISSION. AWAITING FOR ORDERS.
[2019-10-05] MEDS ORDERED: IV NS 0.9% 1,000 ML IV PRN (10:07)
--- NOTE | 2019-10-05 10:12 | NUR ---
PAPER CARRIER NOTES PT HOOKED TO TELEMONITORING. PT'S READING IS AFIB HR 74. PT DENIES ANY CHEST PAIN AT THIS TIME WELL.
[2019-10-05] MEDS ORDERED: MORPHINE SULFATE INJ 2 MG/ML DISP.SYRIN IV PRN (10:30)
[2019-10-05] MEDS ORDERED: ACETAMINOPHEN 325 MG TABLET PO PRN (10:30)
[2019-10-05] MEDS ORDERED: Z GUARD REMEDY 2 OZ OINT TP PRN (10:30)
[2019-10-05] MEDS ORDERED: ONDANSETRON HCL/PF 4 MG/2 ML VIAL IVP PRN (10:30)
[2019-10-05] MEDS: IV NS 0.9% 1,000 ML IV PRN ×2 (10:44→23:47)
[2019-10-05] MEDS: HEPARIN SODIUM, PORCINE 5000 UNITS/1 ML VIAL SQ SCH ×2 (10:46→20:48)
--- NOTE | 2019-10-05 11:25 | NUR ---
GROUNDS CREW SUPERVISOR NOTES PT STABILIZED. PT NOW ON NORMAL SINUS RHYTHM HR70. WILL CONTINUE TO MONITOR.
--- NOTE | 2019-10-05 13:15 | NUR ---
GENERAL UTILITY MAINTENANCE REPAIRER NOTES RECEIVED LAB RESULT OF LACTIC ACID 3.7, MULTIMEDIA SPECIALIST/LW MADE AWARE. ORDERED TO GIVE EXTRA 500NS BOLUS X1. WILL CONTINUE TO MONITOR.
[2019-10-05] MEDS ORDERED: IV NS 0.9% 500 ML IV ONE ×2 (13:30→17:30)
[2019-10-05 16:00] VITALS: BP 104/49
--- NOTE | 2019-10-05 16:57 | NUR ---
TRANSMISSION INSPECTOR NOTES RECEIVED CALL FROM LAB WITH LACTIC ACID OF 3.9. HOSPITALIST/LW MADE AWARE. AWAITING FOR NEW ORDERS.
[2019-10-05] MEDS: NYSTATIN (PYXIS) 500,000 UNIT/5 ML ORAL.SUSP PO SCH (18:23)
--- NOTE | 2019-10-05 19:01 | NUR ---
WINDOWS SYSTEMS ARCHITECT CLOSING NOTES RECEIVED PT VIA CRISTAL FROM ER DEPT AT 0940AM. PT AWAKE, A/OX3-4 WITH EPISODES OF FORGETFULNESS. PT ON SUPPLEMENTARY OXYGEN AT 5LPM VIA NC, WITH NO ACUTE RESPIRATORY DISTRESS NOTED. VS TAKEN AND RECORDED. PT DENIES ANY PAIN OR DISCOMFORT AT THIS TIME. IVF NS AT 75 ML/HR LEFT WRIST G22, INTACT AND FLUID INFUSING WELL. ALL NEEDS AND CARE PROVIDED. PT KEPT COMFORTABLE. CALL LIGHT KEPT WITHIN REACH. PT'S BED IN LOWEST LOCKED POSITION WITH SR X3. ENDORSED TO [place]AWNEE NIGHT NURSE FOR JASMYNE.
[2019-10-05 20:42] VITALS: BP 97/47
[2019-10-05] MEDS: FOLIC ACID 1 MG TABLET PO SCH (20:46)
--- NOTE | 2019-10-05 21:04 | NUR ---
received in bed alert and orientated. verbalizing her needs. able to roll from side to side with minimal assist IV site left wrist skin warma and dry
[2019-10-06] VITALS (46 sets, daily range): BP systolic 67–124; BP diastolic 26–86
[2019-10-06] MEDS ORDERED: CEFTRIAXONE 1 G in IV D5W 50 ML IV SCH (03:00)
--- NOTE | 2019-10-06 05:28 | NUR ---
ENDING NOTES: ALERT AND ORIENTATED X3 SHE IS FORGETFUL. NOTED SHE DOZES OFF EASIL, LETHARGIC.SHE AROUSE WHEN HER NAME IS SPOKEN OR TOUCHED. GOOD EYE CONTACT. WILL FOLLOW DIRECTIONS AND IS COOPERATIVE.HAS ASKED FOR THE BEDPAN AND HAD A SOFT BROWN BM. SKIN INTACT ATB IV ORDERED. AFEBRILE. HER SON CYNTHIA CALLED X2 AND ASKING HOW SHE WAS DOING. PATIENT MADE AWARE.
--- NOTE | 2019-10-06 07:30 | NUR ---
ms rn received on bed, awake,lethargic,iv leaking at left wrist, respirations even and unlabored,no sob noted. will monitor patient's condition.
--- NOTE | 2019-10-06 08:10 | NUR ---
ms rn new iv inserted at left forearm w/ good venous return.
--- NOTE | 2019-10-06 08:30 | NUR ---
ms rn recieved lctic acid result - 5.1, yin aware, was told to let id deal w/ it.
[2019-10-06 08:44] LABS: BASOPHILS # (AUTO) 0.1 /CMM (0.0-0.2); BASOPHILS % (AUTO) 0.3 % (0.0-2.0); EOSINOPHILS % (AUTO) 0.1 % (0.0-6.0); HEMATOCRIT 28 % (33-45); HEMOGLOBIN 8.9 g/dL (11.5-14.8); LYMPHOCYTES # (AUTO) 0.3 /CMM (0.8-4.8); LYMPHOCYTES % (AUTO) 1.1 % (20.0-44.0); MEAN CORPUSCULAR HGB CONC 32 g/dl (31.0-36.0); MEAN CORPUSCULAR VOLUME 107 fL (82-100); MONOCYTES % (AUTO) 3.5 % (2.0-12.0); NEUTROPHILS # (AUTO) 27.8 /CMM (1.8-8.9); PLATELET COUNT (AUTO) 162 /CMM (150-450); RED BLOOD CELL COUNT(AUTO) 2.63 MIL/uL (4.0-5.2); WHITE BLOOD COUNT (AUTO) 29.3 K/uL (4.3-11.0)
[2019-10-06 08:52] LABS: ALANINE AMINOTRANSFERASE 25 U/L (12-78); ALBUMIN 1.5 g/dL (3.4-5.0); ALKALINE PHOSPHATASE 242 U/L (46-116); ASPARTATE AMINOTRANSFERASE 79 U/L (15-37); BILIRUBIN,TOTAL 3.4 mg/dL (0.2-1.0); CALCIUM, SERUM 7.9 mg/dL (8.5-10.1); CARBON DIOXIDE 12 mmol/L (21-32); CHLORIDE 101 mmol/L (98-107); CREATININE 3.5 mg/dL (0.6-1.3); GLUCOSE 61 mg/dL (74-106); MAGNESIUM 2.3 mg/dL (1.8-2.4); PHOSPHORUS 5.8 mg/dL (2.5-4.9); POTASSIUM 4.4 mmol/L (3.5-5.1); SODIUM SERUM 130 mmol/L (136-145); TOTAL PROTEIN, SERUM 5.2 g/dL (6.4-8.2)
[2019-10-06 08:54] LABS: IRON, SERUM 13 ug/dl (50-175); TOTAL IRON BINDING CAPACITY 124 ug/dl (250-450)
[2019-10-06 08:55] LABS: UREA NITROGEN, BLOOD 90 mg/dL (7-18)
[2019-10-06] MEDS: FOLIC ACID 1 MG TABLET PO SCH (09:00)
[2019-10-06] MEDS: HEPARIN SODIUM, PORCINE 5000 UNITS/1 ML VIAL SQ SCH ×2 (09:00→21:40)
[2019-10-06] MEDS: NYSTATIN (PYXIS) 500,000 UNIT/5 ML ORAL.SUSP PO SCH ×3 (09:00→16:29)
[2019-10-06 09:12] LABS: CHOLESTEROL 105 mg/dL (<200); FERRITIN 141 ng/mL (8-388); HDL CHOLESTEROL 28 mg/dL (40-60); LDL 65 mg/dL (0-99); THYROID STIMULATING HORMONE 7.893 uIU/mL (0.358-3.74); TRIGLYCERIDES 33 mg/dL (30-150)
[2019-10-06 09:21] LABS: BAND % (MANUAL) 1 % (0.0-5.0); LYMPHOCYTES % (MANUAL) 3 % (16-48); MONOCYTES % (MANUAL) 2 % (0-11.0); NEUTROPHILS % (MANUAL) 94 (42-76)
--- NOTE | 2019-10-06 11:20 | NUR ---
ms yadira was seen by id family caseworker w/ orders made and carried out.
--- NOTE | 2019-10-06 12:00 | NUR ---
ms rn patient getting weaker nd b/p going down at 83/34, patient given ns iv as prescribed, no distress noted.
[2019-10-06] MEDS ORDERED: FEE PK DOSING 1 MIN EA MC ONE (13:13)
--- NOTE | 2019-10-06 13:50 | NUR ---
ms rn patient was transferred to icu, report given to chelsea.
[2019-10-06 13:57] LABS: ABG BASE EXCESS -16.9 mmol/L; ABG OXYGEN SATURATION 87.4 % (92.0-98.5); ABG PCO2 21.2 mmHg (35.0-45.0); ABG PH 7.237 (7.350-7.450); ABG PO2 60.3 mmHg (75.0-100.0); AaDO2 200.5 mmHg; COHb 0.4 % (0.5-1.5); MetHb 0.6 % (0.0-1.5); O2Hb 86.5 % (94.0-97.0); SITE, ABG Right Radial; VENT MODE, BG 5L NC
[2019-10-06] MEDS ORDERED: VANCOMYCIN 1.25 GM in IV D5W 250 ML IV SCH (14:00)
--- NOTE | 2019-10-06 14:15 | NUR ---
RN NOTES RECEIVED PT FROM 3W , IN ROOM 261, PT IS A/Ox3, PT ON 4L O2 N/C , O2 SAT WNL, BP STABLE AT THIS TIME, PT. C/O GENERALIZED PAIN, ON TELE SR HR IN 70'S , MIDLINE ORDERED , DALTON INSERTED PER PATIENT PLACEMENT COORDINATOR ORDER, NS AT 75CC /HR RUNNING , T =89.8, PT PLACED ON WARM BLANKET, DR OAKES NOTIFED , URINE SAMPLE SENT TO LAB. GENERALIZED EDEMA NOTED , R WIRST IV SITE G 22 , CLEAN, DRY AND INTACT, SR UP x3,CALL LIGHT WITHIN EASY REACH, BED LOCKED AND IN LOWEST POSITION, CONTINUE TO MONITOR
[2019-10-06] MEDS ORDERED: NOREPINEPHRINE 8 MG in IV NS 0.9% 242 ML IV PRN (14:30)
[2019-10-06] MEDS ORDERED: ALBUTEROL HALF STRENGTH 1.25 MG/3 ML VIAL.NEB NEB PRN (14:30)
[2019-10-06] MEDS: FLUCONAZOLE IN NS 200 MG in PREMIX 1 EA IV SCH ×2 (14:54)
[2019-10-06] MEDS: MEROPENEM 500 MG in IV NS 0.9% 50 ML IV SCH (15:09)
[2019-10-06] MEDS ORDERED: IV NS 0.9% 500 ML IV ONE ×2 (15:30)
--- NOTE | 2019-10-06 15:45 | NUR ---
RN NOTES PT HAS LOW BP, LEVO STARTED ,
[2019-10-06 15:46] LABS: ABG BASE EXCESS -17.1 mmol/L; ABG OXYGEN SATURATION 91.7 % (92.0-98.5); ABG PCO2 21.7 mmHg (35.0-45.0); ABG PH 7.227 (7.350-7.450); ABG PO2 71.7 mmHg (75.0-100.0); AaDO2 159.8 mmHg; COHb 0.5 % (0.5-1.5); MetHb 0.7 % (0.0-1.5); O2Hb 90.6 % (94.0-97.0); SITE, ABG Left Radial; VENT MODE, BG nasal cannula
[2019-10-06 16:57] LABS: APPEARANCE,URINE CLOUDY (CLEAR); BILIRUBIN,URINE MODERATE (NEGATIVE); BLOOD, URINE LARGE Ery/uL (NEGATIVE); KETONES,URINE TRACE (NEGATIVE); LEUKOCYTE ESTERASE ,URINE MODERATE (NEGATIVE); NITRITE, URINE POSITIVE (NEGATIVE); PROTEIN,URINE 100 mg/dl (NEGATIVE); UGLUCOSE NEGATIVE (NEGATIVE); UROBILINOGEN,URINE 0.2 EU/dL (0.2)
[2019-10-06 16:58] LABS: COLOR,URINE DARK YELLOW (YELLOW)
[2019-10-06 17:02] LABS: BACTERIA,URINE Moderate /HPF (None Seen); SQUAMOUS EPITHELIAL CELL,UR Many /HPF (None Seen); WBC,URINE 51-80 /HPF (0-3); YEAST,URINE Many /HPF (None Seen)
[2019-10-06 17:37] LABS: CREATININE, URINE 194.5 MG/DL (30.0-125.0); URINE TOTAL PROTEIN 274.1 mg/dL (0-11.9)
[2019-10-06] MEDS: Sodium Bicarbonate 150 MEQ in IV D5W 1,000 ML IV PRN (17:38)
--- NOTE | 2019-10-06 18:00 | NUR ---
RN NOTES PT REMAINS ON LEVO GTT, ORAL SUCTIONING DONE , PT HAS MODERATE AMOUNT OF BLOODY TINGED SECRETION, DR VANN AWARE , IVF D5W WITH 3 AMP OF BICARB RUNNING AT 125CC/HR VIA L UPPER ARM MIDLINE, DALTON WITH SMALL AMOUNT OF URINE NOTED, PT' SON REQUESTING TO TALK TO MD , DR VANN NOTIFIED, SR UP x3, CALL LIGHT WITHIN EASY REACH, BED LOCKED AND IN LOWEST POSITION , WILL ENDORSE TO CONTENT ASSISTANT NURSE FOR CONTINUITY OF CARE
[2019-10-06 18:30] LABS: EOSINOPHIL,URINE None Seen
[2019-10-06] MEDS ORDERED: PHYTONADIONE INJ 10 MG/1 ML AMPUL SQ ONE (18:30)
--- NOTE | 2019-10-06 19:30 | NUR ---
ICU/POLY PACKER AND HEAT SEALER REPORT RECEIVED FROM THE TO DAY NURSE. SEE FLOWSHEET FOR ASSESSMENT, NO SKIN ISSUES THAT NEED TO BE ADDRESSED. PT IS ALERT WITH PERIODS OF LETHARGIC. PT IS ON 5 LITERS VIA N/C WITH SATURATION AT 90%. WILL MONITOR THIS PT AND HIS SATURATION. PT TURNED AND REPOSITIONED FOR COMFORT AND CARE. PT IS ON LEVO FOR LOW BP, WILL CONTINUE TO MONITOR THIS PT ALONG WITH BP.
--- NOTE | 2019-10-06 19:50 | NUR ---
ICU/RIDER TICKET WORKER PT'S SON CALLED, SOUNDED UPSET PT WAS IN THE ICU. SPENT ABOUT 10 MINUTES TALKING WITH FAMILY. WILL CALL BACK THOUGH THE NIGHT.
--- NOTE | 2019-10-06 20:50 | NUR ---
ICU/WOUND CARE SPECIALIST CALLED PHARMACY TO GET MORE LEVO. IT'S RUNNING AT A HIGH RATE FOR LEVO 8MGS. SAID TO HAVE LEVO REPLACED AT LEVO 32MG THEN TO RUN AT SLOWER RATE. CHARGE NURSE NOTIFIED ABOUT THIS, ORDER WAS PLACED IN COMPUTER.
[2019-10-06] MEDS: NOREPINEPHRINE 32 MG in IV NS 0.9% 218 ML IV PRN (22:46)
--- NOTE | 2019-10-06 23:15 | NUR ---
ICU/KEG FILLER NEW DOSAGE OF LEVO STARTED AT THIS TIME, SEE IV FLOWSHEET FOR THIS.
[2019-10-07] VITALS (96 sets, daily range): BP systolic 80–144; BP diastolic 28–78
[2019-10-07] MEDS ORDERED: FUROSEMIDE 20 MG/2 ML VIAL IV PRN
--- NOTE | 2019-10-07 00:06 | NUR ---
ICU/HALL SUPERVISOR FIBRINOGEN IS 132 AT THIS TIME, DR VANN PUT ORDER IF LESS THAN 150 THAN TRANSFUSE 10 UNITS OF CRYOPRECIPITATES. TYPE AND CROSS MATCH WAS PLACED IN COMPUTER ALSO ORDER WAS TO GIVEN 20MG OF LASIX.
[2019-10-07] MEDS: MEROPENEM 500 MG in IV NS 0.9% 50 ML IV SCH ×2 (00:57→12:01)
--- NOTE | 2019-10-07 01:26 | NUR ---
ICU/LIQUOR BLENDER GOT CONSENT FOR TYPE AND CROSS FROM ANNELIESE MARIE [phone].
[2019-10-07] MEDS ORDERED: IV NS 0.9% 250 ML IV ONE (01:30)
--- NOTE | 2019-10-07 01:30 | NUR ---
ICU/WAREHOUSE HELPER WAITING FOR LAB TO DO SECOND TYPE AND CROSS THEN WILL GIVEN THE 2 UNITS CRYO, LASIX 20 WILL BE GIVEN BEFORE. FIBRINOGENS 132
--- NOTE | 2019-10-07 03:30 | NUR ---
ICU/MANAGER GENERAL PT WAS GIVEN AM CARE, ALONG WITH ORAL CARE. PT TOLERATED THIS WELL. REMAINS ON 5 LITERS N/C. WILL MONITOR THIS PT.
[2019-10-07] MEDS: Sodium Bicarbonate 150 MEQ in IV D5W 1,000 ML IV PRN ×2 (03:42→17:34)
[2019-10-07 04:58] LABS: BASOPHILS # (AUTO) 0.3 /CMM (0.0-0.2); BASOPHILS % (AUTO) 0.9 % (0.0-2.0); EOSINOPHILS % (AUTO) 0.1 % (0.0-6.0); HEMATOCRIT 29 % (33-45); HEMOGLOBIN 9.2 g/dL (11.5-14.8); LYMPHOCYTES # (AUTO) 0.5 /CMM (0.8-4.8); LYMPHOCYTES % (AUTO) 1.6 % (20.0-44.0); MEAN CORPUSCULAR HGB CONC 32 g/dl (31.0-36.0); MEAN CORPUSCULAR VOLUME 107 fL (82-100); MONOCYTES # (AUTO) 1.1 /CMM (0.1-1.30); MONOCYTES % (AUTO) 3.3 % (2.0-12.0); NEUTROPHILS # (AUTO) 32.5 /CMM (1.8-8.9); NEUTROPHILS % (AUTO) 94.1 % (43.0-81.0); PLATELET COUNT (AUTO) 165 /CMM (150-450); RED BLOOD CELL COUNT(AUTO) 2.71 MIL/uL (4.0-5.2)
[2019-10-07 05:06] LABS: CALCIUM, SERUM 7.8 mg/dL (8.5-10.1); CARBON DIOXIDE 12 mmol/L (21-32); CHLORIDE 100 mmol/L (98-107); CREATININE 3.8 mg/dL (0.6-1.3); GLUCOSE 63 mg/dL (74-106); SODIUM SERUM 130 mmol/L (136-145); UREA NITROGEN, BLOOD 84 mg/dL (7-18)
[2019-10-07 05:17] LABS: WHITE BLOOD COUNT (AUTO) 34.5 K/uL (4.3-11.0)
[2019-10-07 05:30] LABS: BAND % (MANUAL) 29 % (0.0-5.0); LYMPHOCYTES % (MANUAL) 1 % (16-48); MONOCYTES % (MANUAL) 1 % (0-11.0); NEUTROPHILS % (MANUAL) 69 (42-76)
--- NOTE | 2019-10-07 05:30 | NUR ---
ICU/TOY STUFFER AM LABS WERE DRAWN, WBC IS 34.5
[2019-10-07 06:10] LABS: THYROID STIMULATING HORMONE 8.643 uIU/mL (0.358-3.74); URIC ACID 10.3 mg/dL (2.6-7.2)
--- NOTE | 2019-10-07 07:20 | NUR ---
RN INITIAL NOTES RECEIVED PT AWAKE, ON 02 VIA NC AT 5LPM. NO RESPIRATORY DISTRESS NOTED. NO SOB NOTED. HOB ELEVATED. ARSEN MIDLINE IN PLACE. ON LEVO AT 0.2MCG/KG/MIN. WILL TITRATE ACCORDINGLY. IVF INFUSING. FC IN PLACE. BLE ELEVATED. WILL CLOSELY MONITOR
[2019-10-07] MEDS: FOLIC ACID 1 MG TABLET PO SCH (08:31)
[2019-10-07] MEDS: NYSTATIN (PYXIS) 500,000 UNIT/5 ML ORAL.SUSP PO SCH ×3 (08:31→17:16)
[2019-10-07] MEDS: HYDROCORTISONE SOD SUCCINATE 100 MG/2 ML VIAL IV SCH ×3 (08:32→17:16)
[2019-10-07] MEDS: HEPARIN SODIUM, PORCINE 5000 UNITS/1 ML VIAL SQ SCH ×2 (08:34→20:28)
[2019-10-07 08:39] LABS: ABG BASE EXCESS -15.3 mmol/L; ABG OXYGEN SATURATION 87.2 % (92.0-98.5); ABG PCO2 20.6 mmHg (35.0-45.0); ABG PH 7.279 (7.350-7.450); ABG PO2 58.1 mmHg (75.0-100.0); AaDO2 239.3 mmHg; MetHb 0.5 % (0.0-1.5); O2Hb 85.9 % (94.0-97.0); SITE, ABG Right Radial; VENT MODE, BG Nasal Cannula
[2019-10-07] MEDS ORDERED: FERROUS SULFATE UDC 300 MG/5 ML UDC PO SCH (09:00)
--- NOTE | 2019-10-07 10:00 | NUR ---
RN NOTES SEEN AND EXAMINED BY DR OAKES. AWARE OF LAB VALUES, ABG RESULT AND CXR RESULT. MD ORDERED TO PLACE PT ON HIGH FLOW 02. HOB ELEVATED. WILL CLOSELY MONITOR
[2019-10-07] MEDS: FLUCONAZOLE IN NS 200 MG in PREMIX 1 EA IV SCH ×2 (13:47)
--- NOTE | 2019-10-07 14:30 | NUR ---
RN NOTES SEEN AND EXAMINED BY DR ANASTASIA CONNOR. AWARE OF LAB VALUES AND CXR RESULT. PT ON LEVO, TITRATED ACCORDINGLY. ON HIGH FLOW 02. MD ORDERED COVID SWAB. PT PLACED ON ISOLATION. SPECIMEN SENT TO LABS. WILL CLOSELY MONITOR
--- NOTE | 2019-10-07 15:45 | NUR ---
RN NOTES PT INTUBATED BY DR MATIAS. CXR ORDERED TO CONFIRM PLACEMENT. WILL START DIPRIVAN NEEDED. HOB ELEVATED. NO RESPIRATORY DISTRESS NOTED. SON AWARE OF PT'S CONDITION. WILL CLOSELY MONITOR
[2019-10-07] MEDS: SOD FERRIC GLUC 125 MG in IV NS 0.9% 100 ML IV SCH (15:57)
--- NOTE | 2019-10-07 16:05 | NUR ---
RT NOTE RECEIVED PT ON NASAL CANULA AT 6 LPM, DUE TO ABG PLACED PT ON HIGH FLOW PER MD ORDER, AT 1545 INTUBATED PT WITH AT 7.0 ETT 22CM AT LIP, PT ON NOTED SETTINGS, WILL CONTINUE TO MONITOR
[2019-10-07] MEDS: PROPOFOL 100 ML IV PRN (16:14)
[2019-10-07] MEDS: NOREPINEPHRINE 32 MG in IV NS 0.9% 218 ML IV PRN (17:41)
[2019-10-07 18:17] LABS: ABG BASE EXCESS -22.6 mmol/L; ABG OXYGEN SATURATION 95.6 % (92.0-98.5); ABG PH 6.949 (7.350-7.450); ABG PO2 109.5 mmHg (75.0-100.0); AaDO2 564.5 mmHg; MetHb 0.9 % (0.0-1.5); O2Hb 94.7 % (94.0-97.0); PEEP,BG 5 cm H2O; SITE, ABG Left Radial; VT, ABG 500 mL
[2019-10-07] MEDS ORDERED: SODIUM BICARBONATE SYR 50 MEQ/50 ML DISP.SYRIN IV ONE ×2 (18:30→22:00)
--- NOTE | 2019-10-07 18:55 | NUR ---
RN CLOSING NOTES 1829 ABG RESULT RELAYED TO DR OAKES. ORDERED VENT SETTINGS CHANGE TO AC 28 AND TV 600. ABG AT 2029. GIVE EXTRA 2AMPS BICARB. WILL CLOSELY MONITOR 1854 PT INTUBATED, ON VENT. SEDATED, ON DIPRIVAN AT 5MCG/KG/MIN. MIDLINE IN PLACE. IVF INFUSING. LEVO AT 0.4MCG/KG/MIN. FC IN PLACE. KEPT COMFORTABLE. WILL ENDORSE FOR CONTINUITY OF CARE
[2019-10-07 21:05] LABS: ABG BASE EXCESS -20.1 mmol/L; ABG OXYGEN SATURATION 99.3 % (92.0-98.5); ABG PCO2 28.7 mmHg (35.0-45.0); ABG PH 7.082 (7.350-7.450); AaDO2 389.3 mmHg; COHb 0.5 % (0.5-1.5); MetHb 0.6 % (0.0-1.5); O2Hb 98.2 % (94.0-97.0); SITE, ABG Left Radial
--- NOTE | 2019-10-07 21:37 | NUR ---
MOLD LOFT WORKER NOTE RELAYED ABG RESULTS TO MANAGER SOLAR DR NOBLE WITH ORDERS TO DECREASE TV TO 500 AND DECREASES FIO2 TO 50% AND GIVE 2 AMPS OF BICARB WITH FOLLOW UP ABG AT 7AM. ORDERS NOTED AND CARRIED OUT. WILL MONITOR.
--- NOTE | 2019-10-07 21:40 | NUR ---
RT NOTE Late Entry: ABG taken and results given to RN. Vent changes per md orders. will continue to monitor closely. Addendum: 10/08/19 at 0440 by OFELIA ENGLISH RT Amended: Links added.
[2019-10-07] MEDS ORDERED: SODIUM BICARBONATE SYR 50 MEQ/50 ML DISP.SYRIN ONE (22:23)
[2019-10-08] VITALS (94 sets, daily range): BP systolic 0–141; BP diastolic 0–107
[2019-10-08] MEDS: MEROPENEM 500 MG in IV NS 0.9% 50 ML IV SCH ×2 (00:12→13:08)
[2019-10-08 01:01] LABS: ABG BASE EXCESS -20.1 mmol/L; ABG OXYGEN SATURATION 93.4 % (92.0-98.5); ABG PCO2 28.2 mmHg (35.0-45.0); ABG PH 7.085 (7.350-7.450); ABG PO2 80.7 mmHg (75.0-100.0); AaDO2 244.1 mmHg; COHb 0.7 % (0.5-1.5); MetHb 0.7 % (0.0-1.5); O2Hb 92.1 % (94.0-97.0); SITE, ABG Left Radial; VENT MODE, BG AC 28 500 50% +5
[2019-10-08] MEDS ORDERED: NOREPINEPHRINE 4 MG/4 ML AMPUL IV ONE (01:59)
[2019-10-08] MEDS: NOREPINEPHRINE 32 MG in IV NS 0.9% 218 ML IV PRN ×5 (02:14→23:28)
[2019-10-08 04:29] LABS: CALCIUM, SERUM 7.6 mg/dL (8.5-10.1); CHLORIDE 102 mmol/L (98-107); CREATININE 4.4 mg/dL (0.6-1.3); MAGNESIUM 2.2 mg/dL (1.8-2.4); POTASSIUM 4.9 mmol/L (3.5-5.1); SODIUM SERUM 134 mmol/L (136-145)
[2019-10-08 04:30] LABS: BASOPHILS # (AUTO) 0.1 /CMM (0.0-0.2); BASOPHILS % (AUTO) 0.3 % (0.0-2.0); EOSINOPHILS % (AUTO) 0.2 % (0.0-6.0); HEMATOCRIT 28 % (33-45); HEMOGLOBIN 8.5 g/dL (11.5-14.8); LYMPHOCYTES # (AUTO) 0.5 /CMM (0.8-4.8); LYMPHOCYTES % (AUTO) 1.3 % (20.0-44.0); MEAN CORPUSCULAR HGB CONC 30 g/dl (31.0-36.0); MEAN CORPUSCULAR VOLUME 112 fL (82-100); MONOCYTES # (AUTO) 0.4 /CMM (0.1-1.30); MONOCYTES % (AUTO) 1.1 % (2.0-12.0); NEUTROPHILS # (AUTO) 35.9 /CMM (1.8-8.9); NEUTROPHILS % (AUTO) 97.1 % (43.0-81.0); PLATELET COUNT (AUTO) 162 /CMM (150-450)
[2019-10-08 04:43] LABS: WHITE BLOOD COUNT (AUTO) 36.9 K/uL (4.3-11.0)
[2019-10-08 04:48] LABS: CARBON DIOXIDE 10 mmol/L (21-32); GLUCOSE 8 mg/dL (74-106); PHOSPHORUS 8.2 mg/dL (2.5-4.9); UREA NITROGEN, BLOOD 85 mg/dL (7-18)
[2019-10-08] MEDS ORDERED: DEXTROSE 50%-WATER 50 ML DISP.SYRIN ONE (04:49)
[2019-10-08] MEDS ORDERED: PHENYLEPHRINE 10 MG/ML VIAL ONE (04:59)
[2019-10-08] MEDS ORDERED: DEXTROSE 50%-WATER 50 ML DISP.SYRIN IVP ONE ×2 (05:00→09:30)
--- NOTE | 2019-10-08 05:05 | NUR ---
RT NOTE Pt rec'd orally intubated via ETT sz 8.0 ETT secured @ 27cm at the lipline. Pt on [facility] vent on AC mode settings as charted. Pt sx'd for thick mod amt of bloody secretions. Alarms are set and audible. Vent plugged into red outlet. Ambu bag bedside. Will continue to monitor closely. Addendum: 10/08/19 at 0508 by OFELIA ENGLISH RT Amended: Links added. Addendum: 10/08/19 at 0509 by OFELIA ENGLISH RT ETT SZ #7.0 SECURED AT 22CM AT THE LIPLINE
[2019-10-08 05:13] LABS: BAND % (MANUAL) 18 % (0.0-5.0); LYMPHOCYTES % (MANUAL) 2 % (16-48); NEUTROPHILS % (MANUAL) 80 (42-76)
[2019-10-08] MEDS: PHENYLEPHRINE 100 MG in IV NS 0.9% 240 ML IV PRN ×3 (05:15→20:43)
[2019-10-08] MEDS: PROPOFOL 100 ML IV PRN (05:23)
--- NOTE | 2019-10-08 05:30 | NUR ---
COKE BURNER NOTE NOTIFIED LOZENGE DOUGH MIXER ISADORA MARTINEZ CRITICAL VALUES GLUCOSE 8, LACTIC ACID-14.4, BUN-85, PHOS- 8.2. WBC- 36.9, PTT- 85.6. WITH ORDERS TO GIVE D50 IVP X1 AND INCREASE SODIUM BICARB DRIP TO 100 ML/HR. GAVE D50 AND RECHECKED BLOOD GLUCOSE RESULT 100 MG/DL. ORDERS NOTED AND CARRIED OUT. BP DECREASING WITH LEVO MAX. ORDERS TO START PHENYLEPHRINE SECOND DRIP TO KEEP SBP >90. NOTED AND CARRIED OUT. WILL MONITOR.
--- NOTE | 2019-10-08 07:15 | NUR ---
ACCORDION REPAIRER NOTES RECEIVED PATIENT SEDATED , NOT IN ACUTE DISTRESS , INTUBATED 7. IN PLACE ON MECHANICAL VENT SETTINGS ORDERED WITH SPO2 OF 98% , ST 105 ON BEDSIDE MONITOR , FC DRAINING VIA GRAVITY , RESTRAINS REMOVED , OGT IN PLACE CLAMPED , ON LEVO @ 1MCG/KG/MIN , PAULO @ 0.5MCG/KG/MIN , DIPRIVAN @ 5MCG/KG/MIN , D5W WITH SODIUM BICARB 3AMPS @ 100ML/HR INFUSING WELL , ALL NEEDS ATTENDED, BED ON LOW AND LOCKED POSITION , SIDE RAILS X2 CALL LIGHT WITHIN REACH , WILL CONTINUE TO MONITOR
[2019-10-08 07:54] LABS: ABG BASE EXCESS -21.5 mmol/L; ABG OXYGEN SATURATION 91.6 % (92.0-98.5); ABG PCO2 33.6 mmHg (35.0-45.0); ABG PO2 76.4 mmHg (75.0-100.0); AaDO2 314.4 mmHg; COHb 0.6 % (0.5-1.5); MetHb 0.6 % (0.0-1.5); O2Hb 90.5 % (94.0-97.0); SITE, ABG Left Radial; VENT MODE, BG AC 28 500 60% +5
[2019-10-08] MEDS ORDERED: ROCURONIUM BROMIDE 50 MG/5 ML IV ONE (08:09)
[2019-10-08] MEDS ORDERED: ETOMIDATE 2 MG/ML VIAL IV ONE (08:09)
[2019-10-08] MEDS: HEPARIN SODIUM, PORCINE 5000 UNITS/1 ML VIAL SQ SCH ×2 (08:47→20:04)
[2019-10-08] MEDS: HYDROCORTISONE SOD SUCCINATE 100 MG/2 ML VIAL IV SCH (08:49)
[2019-10-08] MEDS: FOLIC ACID 1 MG TABLET PO SCH (08:50)
[2019-10-08] MEDS: NYSTATIN (PYXIS) 500,000 UNIT/5 ML ORAL.SUSP PO SCH ×3 (08:50→16:19)
--- NOTE | 2019-10-08 09:10 | NUR ---
REGIONAL MARKETING MANAGER NOTES SEEN AND EVALUATED BY DR OAKES ,DISCUSSED VENT SETTING LABS , CHEST XRAY RESULTS , PT AFEBRILE , ON LEVOPHED MAXED DOSED AND PAULO , BS OF 56 PT ON D5W WITH SODIUM BICARB 3AMPS @ 100ML/HR , LOW URINE OUTPUT , OFF SEDATION NOT FOLLOWING COMMANDS , DOESN'T TRACKS , PUPILS SLUGGISH 3MM , MD AWARE , PER MD START PT ON ACCU CHECK Q2 , CHANGE IVF TO D10 WITH 3 AMPS OF NAHCO3 @ 100ML/HR , IF BS IS 100 ABOVE X2 MAY DC ACCU CHECK Q2 . ORDER CARRIED OUT
[2019-10-08] MEDS ORDERED: DEXTROSE 50%-WATER 50 ML DISP.SYRIN IV PRN (09:30)
[2019-10-08] MEDS ORDERED: INSULIN REGULAR, HUMAN 100 UNIT/ML 3 ML VIAL SQ PRN (09:30)
[2019-10-08] MEDS: DEXTROSE IV PRN ×2 (10:15→22:14)
[2019-10-08] MEDS: SODIUM CHLORIDE IV PRN ×2 (10:15→22:14)
[2019-10-08] MEDS: SODIUM BICARBONATE IV PRN ×2 (10:15→22:14)
--- NOTE | 2019-10-08 11:15 | NUR ---
HARDWOOD FLOOR REFINISHER NOTES ABG RELAYED BY RT FERRER TO DR VIOLETTE MD AWARE , NO NEW ORDERS RECEIVED
[2019-10-08] MEDS: HYDROXYCHLOROQUINE 200 MG TABLET PO SCH ×2 (11:23→20:03)
[2019-10-08] MEDS ORDERED: DOSE PER PHARMACY MICAFUNGIN 1 EA XX PRN (11:30)
[2019-10-08] MEDS: BLOOD SUGAR DIAGNOSTIC 1 EACH STRIP IN SCH ×6 (11:36→21:00)
[2019-10-08 11:55] LABS: ABG BASE EXCESS -21.9 mmol/L; ABG OXYGEN SATURATION 97.5 % (92.0-98.5); ABG PH 7.054 (7.350-7.450); ABG PO2 116.6 mmHg (75.0-100.0); AaDO2 283.7 mmHg; COHb 0.3 % (0.5-1.5); MetHb 0.6 % (0.0-1.5); O2Hb 96.6 % (94.0-97.0); SITE, ABG Left Radial; VENT MODE, BG AC 32 600 +5 60%
[2019-10-08] MEDS ORDERED: VASOPRESSIN INJ 40 UNIT in IV NS 0.9% 38 ML IV PRN (12:00)
[2019-10-08] MEDS ORDERED: JEVITY 1.2 CAL 1,000 ML BOTTLE GT PRN (12:00)
--- NOTE | 2019-10-08 13:00 | NUR ---
DEALER DEVELOPMENT MANAGER NOTES CALLED CANTRAL FOR FEEDING PUMP , NO AVAILABLE PUMP AT THIS TIME
[2019-10-08] MEDS ORDERED: MICAFUNGIN SODIUM 100 MG in IV NS 0.9% 100 ML IV SCH (14:00)
[2019-10-08] MEDS: SOD FERRIC GLUC 125 MG in IV NS 0.9% 100 ML IV SCH (14:58)
[2019-10-08 15:03] LABS: BILIRUBIN,TOTAL 3.4 mg/dL (0.2-1.0)
[2019-10-08 15:07] LABS: C-REACTIVE PROTEIN 8.3 mg/dL (0.0-0.9)
[2019-10-08] MEDS: VASOPRESSIN INJ 40 UNIT in IV NS 0.9% 38 ML IV PRN ×2 (15:35→19:37)
--- NOTE | 2019-10-08 15:54 | NUR ---
RT NOTE Pt rec'd orally intubated via ETT sz 8.0 ETT secured @ 27cm at the lipline. Pt on mech vent on AC mode settings as charted. Pt sx'd for thick mod amt of bloody secretions. Alarms are set and audible. Vent plugged into red outlet. Ambu bag bedside. Will continue to monitor closely.
[2019-10-08] MEDS ORDERED: HYDROCORTISONE SOD SUCCINATE 100 MG/2 ML VIAL IV SCH (17:00)
[2019-10-08] MEDS ORDERED: diphenhydrAMINE HCL 50 MG/ML VIAL IV ONE (17:00)
[2019-10-08] MEDS ORDERED: ACETAMINOPHEN 325 MG TABLET PO ONE (17:00)
[2019-10-08] MEDS ORDERED: SODIUM BICARBONATE SYR 50 MEQ/50 ML DISP.SYRIN IV ONE (17:30)
--- NOTE | 2019-10-08 18:53 | NUR ---
WEB PRESS OPERATOR APPRENTICE NOTES SPOKE WITH SON CYNTHIA DOW ON THE PHONE ,DISCUSSED PT STATUS AT THIS TIME , VERIFIED REGARDING PT CODE STATUS , AFTER A LONG DISCUSSION WITH SON TOGETHER WITH ICU CHARGE NURSE ANIRUDH , SON AGREED TO CHANGE CODE STATUS TO DNR , ORDER CARRIED OUT , DR OCONNOR NOTIFIED
[2019-10-08] MEDS ORDERED: ACETAMINOPHEN 325 MG TABLET ONE (21:25)
[2019-10-08] MEDS ORDERED: diphenhydrAMINE HCL 50 MG/ML VIAL ONE (21:26)
--- NOTE | 2019-10-08 23:53 | NUR ---
RN/ICU-PRONOUNCEMENT OF . PT. CODE STATUS "DO NUT RESUSCITATE. PT. UNRESPONSIVE. PUPILS ARE FIXED AND DILATED, APNEIC, EKG ASYSTOLE X 2 LEADS. PERIPHERAL PULSES ARE ABSENT. NO SIGNS OF LIFE. PT. PRONOUNCED AT 8733. BY:JOVON FOX RN, BSN.
--- NOTE | 2019-10-09 00:25 | NUR ---
C++ QUANT DEVELOPER NOTE 2353-FOUND PT UNRESPONSIVE. CHARGE NURSE AT BEDSIDE. BILATERAL PUPILS FIXED AND DILATED. NO RESPONSE TO PAINFUL STIMULI. ABSENT RESPIRATIONS NO PULSE UPON PALPATION. NO HEART SOUNDS UPON AUSCULTATION. NO BP READING. NOTIFIED CYNTHIA (SON). - 6125-ADMITTING JOVON NOTIFIED. - 9855-NURSING FARM EQUIPMENT ASSEMBLER Toby OSBORNE NOTIFIED. - 0003- [facility] NOTIFIED WITH REFERENCE # [id number]. - 0005- NOTIFIED MANAGED SECURITY SALES CONSULTANT ISADORA MARTINEZ.
[2019-10-09] MEDS ORDERED: HYDROXYCHLOROQUINE 200 MG TABLET PO SCH (09:00)
== END 2019-10-08 23:53 | disposition expired | DRG 871 ==
LOC: ER 00:49 → TELE 09:11 → ICU 10-06 13:59
PROVIDERS: ADMIT Registered Nurse
PROC: 30233M1 Transfusion of Nonautologous Plasma Cryoprecipitate into Peripheral Vein, Percutaneous Approach (ICD-10-PCS; principal; 2019-10-06)
PROC: 05HY33Z Insertion of Infusion Device into Upper Vein, Percutaneous Approach (ICD-10-PCS; principal; 2019-10-06)
PROC: 0BH17EZ Insertion of Endotracheal Airway into Trachea, Via Natural or Artificial Opening (ICD-10-PCS; 2019-10-07)
PROC: 5A1945Z Respiratory Ventilation, 24-96 Consecutive Hours (ICD-10-PCS; 2019-10-07)
PROC: 30233K1 Transfusion of Nonautologous Frozen Plasma into Peripheral Vein, Percutaneous Approach (ICD-10-PCS; 2019-10-08)
DX: A41.9 Sepsis, unspecified organism (principal); R65.21 Severe sepsis with septic shock; K85.90 Acute pancreatitis without necrosis or infection, unspecified; E43 Unspecified severe protein-calorie malnutrition; U07.1 COVID-19; J96.01 Acute respiratory failure with hypoxia; N17.0 Acute kidney failure with tubular necrosis; D65 Disseminated intravascular coagulation [defibrination syndrome]; N17.9 Acute kidney failure, unspecified; N39.0 Urinary tract infection, site not specified; J98.11 Atelectasis; E87.1 Hypo-osmolality and hyponatremia; E87.2 Acidosis; C25.9 Malignant neoplasm of pancreas, unspecified; D61.818 Other pancytopenia; K51.90 Ulcerative colitis, unspecified, without complications; J90 Pleural effusion, not elsewhere classified; J44.1 Chronic obstructive pulmonary disease with (acute) exacerbation; B37.0 Candidal stomatitis; G93.40 Encephalopathy, unspecified; R18.8 Other ascites; K56.7 Ileus, unspecified; D68.9 Coagulation defect, unspecified; C78.7 Secondary malignant neoplasm of liver and intrahepatic bile duct; N18.9 Chronic kidney disease, unspecified; E86.0 Dehydration; E03.9 Hypothyroidism, unspecified; E83.51 Hypocalcemia; E86.1 Hypovolemia; G89.4 Chronic pain syndrome; R62.7 Adult failure to thrive; Z90.411 Acquired partial absence of pancreas; Z85.07 Personal history of malignant neoplasm of pancreas; Z96.653 Presence of artificial knee joint, bilateral; Z92.21 Personal history of antineoplastic chemotherapy; M19.90 Unspecified osteoarthritis, unspecified site; Z98.890 Other specified postprocedural states; K21.9 Gastro-esophageal reflux disease without esophagitis; M81.0 Age-related osteoporosis without current pathological fracture; T45.1X5A Adverse effect of antineoplastic and immunosuppressive drugs, initial encounter; Y92.9 Unspecified place or not applicable; I70.0 Atherosclerosis of aorta; D53.9 Nutritional anemia, unspecified; E16.2 Hypoglycemia, unspecified; E66.01 Morbid (severe) obesity due to excess calories; Z68.36 Body mass index [BMI] 36.0-36.9, adult; Z88.8 Allergy status to other drugs, medicaments and biological substances; Z79.899 Other long term (current) drug therapy; Z72.0 Tobacco use; Z90.49 Acquired absence of other specified parts of digestive tract; K43.9 Ventral hernia without obstruction or gangrene; D89.9 Disorder involving the immune mechanism, unspecified; K74.60 Unspecified cirrhosis of liver; Z66 Do not resuscitate
CPT/HCPCS: 31720; 36415; 36600; 71045-TC; 80048-TC; 80053-TC; 80061-TC; 80076-TC; 81000-TC; 82247-TC; 82248-TC; 82533; 82570-TC; 82728-TC; 82803-TC; 82962-TC; 83540-TC; 83605-TC; 83615-TC; 83690-TC; 83735-TC; 83935-TC; 84100-TC; 84155-TC; 84300-TC; 84439-TC; 84443-TC; 84484-TC; 84550-TC; 85025-TC; 85385-TC; 85610-TC; 85730-TC; 86140-TC; 86301; 86803; 86850-TC; 87040-TC; 87070-TC; 87081-TC; 87086-TC; 87806; 92611-TC; 93307-TC; 94002-TC; 94003-TC; A4216; C1751; G0378; J0696; J1170; J1200; J1450; J1644; J1720; J1815; J1940; J2185; J2248; J2270; J2370; J2405; J2916; J3370; J3430; J3490; J7030; J7040; J7050; J7060; J7070; P9012; P9017-BL